=== PATIENT | female | born 1950 | race Caucasian/White ===

== ENCOUNTER 2016-08-30 18:45 | Inpatient (IN) ==
[2016-08-30] MEDS ORDERED: 0.9 % Sodium Chloride 1,000 ML IVC ONE (18:47)
[2016-08-30] MEDS ORDERED: Ondansetron 4 MG/2 ML VIAL IVP ONE (18:47)
--- NOTE | 2016-08-30 18:48 | Emergency Department Note ---
Disposition Clinical Impression: Abdominal pain, Malignancy, Anemia, Peritoneal carcinomatosis, Metastatic disease Disposition: Admitted As Inpatient Condition: Fair General Adult HPI - General Chief complaint: ED Abdominal Pain Stated complaint: Abd Pain N/V Time Seen by Provider: 08/30/16 18:46 - Related Data Previous Rx's Medication Instructions Recorded Guaifenesin/Pseudoephedrne HCl 1 each PO BID #20 tab.er.12h 10/18/15 [Mucinex D ER 1,200-120 mg Tab] Promethazine [Phenergan] 25 mg PO Q6HR PRN #16 tablet 10/18/15 Allergies Allergy/AdvReac Type Severity Reaction Status Date / Time No Known Allergies Allergy Verified 10/14/15 12:09 Past Medical History - Past Medical History Medical history: Reports: no medical history Psychiatric history: Reports: depression 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 RELATIONS AGENT history: Reports: no GUEST RELATIONS AGENT history - Social History Smoking Status: Unknown if ever smoked Smokeless Tobacco Status: No Alcohol use: Reports: unknown Drug use: Reports: none Course Vital Signs Temperature 98.2 F 08/30/16 18:46 Pulse Rate 96 08/30/16 18:46 Respiratory Rate 20 08/30/16 18:46 Blood Pressure 115/63 08/30/16 18:46 O2 Sat by Pulse Oximetry 95 08/30/16 18:46 Temperature 98.2 F 08/30/16 18:46 Pulse Rate 96 08/30/16 18:46 Respiratory Rate 20 08/30/16 18:46 Blood Pressure 115/63 08/30/16 18:46 O2 Sat by Pulse Oximetry 95 08/30/16 18:59 Oxygen Delivery Oxygen Delivery Room Air Medical Decision Making - Lab Data Result diagrams: 08/30/16 19:53 08/30/16 19:53 Lab Results 08/30/16 08/30/16 08/30/16 Range/Units 19:53 19:53 19:53 WBC 15.3 H (4.3-11.1) K/mcL RBC 2.11 L (3.82-4.97) M/mcL Hgb 7.7 L (11.5-15.4) g/dL Hct 22.1 L (35.3-44.9) % MCV 104.7 H (83.0-100.0) fL MCH 36.5 H (28.0-33.3) pg MCHC 34.8 (31.6-35.5) g/dL RDW 20.8 H (11.5-14.5) % Plt Count 305 (140-400) K/mcL MPV 9.6 (9.4-12.4) fL Immature Gran % 1.5 (0-4) % Seg Neutrophils % 77.0 % Lymphocytes % 11.9 % Monocytes % 7.7 % Eosinophils % 1.4 % Basophils % 0.5 % Neutrophils # 11.8 H (1.6-8.9) K/mcL Lymphocytes # 1.8 (0.6-4.6) K/mcL Monocytes # 1.2 (0.0-1.3) K/mcL Eosinophils # 0.2 (0.0-0.6) K/mcL Basophils # 0.1 (0.0-0.2) K/mcL Nucleated RBCs/100 WBC 0.1 H (0) /100 WBC Immature Plt Fraction 3.6 (1.1-6.1) % PT 16.0 H (9.4-12.1) Seconds INR 1.5 Sodium 132 L (136-145) mEq/L Potassium 3.8 (3.5-4.5) mEq/L Chloride 102 (98-109) mEq/L Carbon Dioxide 22 (19-29) mEq/L BUN 27 H (7-20) mg/dL Creatinine 0.82 (0.57-1.11) mg/dL Est GFR ( Amer) > 60 (> 60) Est GFR (Non-Af Amer) > 60 (> 60) BUN/Creatinine Ratio 33 H (6-26) Glucose 173 H (70-99) mg/dL Calculated Osmolality 283 (280-300) Lactic Acid (0.5-2.2) mmol/L Calcium 9.1 (8.6-10.8) mg/dL Total Bilirubin 6.7 H (0.2-1.2) mg/dL Direct Bilirubin 4.9 H (0.0-0.5) mg/dL Indirect Bilirubin 1.8 H (0.0-1.2) mg/dL AST 193 H (5-34) Units/L ALT 46 (0-55) Units/L Alkaline Phosphatase 657 H (38-126) Units/L Troponin I (0-0.03) ng/mL Serum Total Protein 5.9 L (6.0-8.3) g/dL Albumin 2.0 L (3.5-5.0) g/dL Globulin 3.9 H (2.4-3.5) g/dL Albumin/Globulin Ratio 0.5 L (1.1-2.2) Lipase 34 (8-78) Units/L 08/30/16 08/30/16 Range/Units 19:53 19:53 WBC (4.3-11.1) K/mcL RBC (3.82-4.97) M/mcL Hgb (11.5-15.4) g/dL Hct (35.3-44.9) % MCV (83.0-100.0) fL MCH (28.0-33.3) pg MCHC (31.6-35.5) g/dL RDW (11.5-14.5) % Plt Count (140-400) K/mcL MPV (9.4-12.4) fL Immature Gran % (0-4) % Seg Neutrophils % % Lymphocytes % % Monocytes % % Eosinophils % % Basophils % % Neutrophils # (1.6-8.9) K/mcL Lymphocytes # (0.6-4.6) K/mcL Monocytes # (0.0-1.3) K/mcL Eosinophils # (0.0-0.6) K/mcL Basophils # (0.0-0.2) K/mcL Nucleated RBCs/100 WBC (0) /100 WBC Immature Plt Fraction (1.1-6.1) % PT (9.4-12.1) Seconds INR Sodium (136-145) mEq/L Potassium (3.5-4.5) mEq/L Chloride (98-109) mEq/L Carbon Dioxide (19-29) mEq/L BUN (7-20) mg/dL Creatinine (0.57-1.11) mg/dL Est GFR ( Amer) (> 60) Est GFR (Non-Af Amer) (> 60) BUN/Creatinine Ratio (6-26) Glucose (70-99) mg/dL Calculated Osmolality (280-300) Lactic Acid 2.3 H (0.5-2.2) mmol/L Calcium (8.6-10.8) mg/dL Total Bilirubin (0.2-1.2) mg/dL Direct Bilirubin (0.0-0.5) mg/dL Indirect Bilirubin (0.0-1.2) mg/dL AST (5-34) Units/L ALT (0-55) Units/L Alkaline Phosphatase (38-126) Units/L Troponin I 0.00 (0-0.03) ng/mL Serum Total Protein (6.0-8.3) g/dL Albumin (3.5-5.0) g/dL Globulin (2.4-3.5) g/dL Albumin/Globulin Ratio (1.1-2.2) Lipase (8-78) Units/L Attestation Statement - Attestation Attestation: I examined this patient and my medical decision-making was reviewed with the ACCOUNTANT COST/PA/Advanced Practice Nurse/Resident Physician. I agree with the documented findings, disposition and treatment plan as described except to the extent set forth below. [id number] time provided Patient presents from home via EMS. She complains of chronic declining health, weight loss, diffuse pain, increased abdominal girth. She appears older than stated age on exam. She appears thin and frail but does have a distended abdomen. Concern for occult malignancy. Plan of care and management discussed by me with the resident physician Dr. Champion
[2016-08-30] MEDS ORDERED: *HR* HYDROmorphone (PF) 1 MG/ML SYRINGE IVP ONE (18:49)
--- NOTE | 2016-08-30 18:51 | Emergency Department Note ---
Disposition Clinical Impression: Malignancy, Peritoneal carcinomatosis, Metastatic disease Abdominal pain Qualifiers: Abdominal location: generalized Qualified Code(s): R10.84 - Generalized abdominal pain Anemia Qualifiers: Anemia type: unspecified type Qualified Code(s): D64.9 - Anemia, unspecified Disposition: Admitted As Inpatient Condition: Fair Referrals: NO,PCP [Primary Care Provider] - Forms: ED Satisfaction Letter, Work/School Release Abdominal Pain HPI - General Chief Complaint: ED Abdominal Pain Stated Complaint: Abd Pain N/V Time Seen by Provider: 08/30/16 18:46 Source: patient, EMS Mode of arrival: EMS Limitations: no limitations Nursing Notes Reviewed: Yes Vital Signs Reviewed: Yes - History of Present Illness HPI Narrative: 66 YO female presents for evaluation of "pain". Patient states that she has not been feeling well for over a month. States that she does not go to doctors and has not been to a doctor in the past 10 years. Patient does not provide much of a past medical history. Patient reports that she does smoke marijuana but does not seem to get rid of the pain. When asked specifically about her pain she says she has pain everywhere. Notes weight loss as well as bilateral lower leg swelling. Denies any fever. Denies a nausea or vomiting. Patient does note a distended abdomen. Denies history of hepatitis or alcohol abuse. No constipation or diarrhea but does note small stools. Denies history of recent colonoscopies. Reports weight loss with past month. - Related Data Previous Rx's Medication Instructions Recorded Guaifenesin/Pseudoephedrne HCl 1 each PO BID #20 tab.er.12h 10/18/15 [Mucinex D ER 1,200-120 mg Tab] Promethazine [Phenergan] 25 mg PO Q6HR PRN #16 tablet 10/18/15 Allergies Allergy/AdvReac Type Severity Reaction Status Date / Time No Known Allergies Allergy Verified 10/14/15 12:09 All systems ED: reviewed and negative except as stated. Constitutional: Reports: as per HPI. 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 Absent: miosis - ENT ENT exam: normal exam, mucous membranes moist - Neck Neck exam: Present: normal inspection, trachea midline - Chest Chest inspection: Present: normal inspection, symmetric chest wall rise. Absent : tenderness - Respiratory Respiratory exam: Present: normal lung sounds bilaterally. Absent: respiratory distress - Cardiovascular Cardiovascular exam: Present: regular rate, normal rhythm - Abdominal Exam Abdominal exam: Present: soft, Non-Tender, distention. Absent: guarding, rebound - Extremities Exam Extremities exam: Present: normal inspection, pedal edema (1+ bilateral edema) - Expanded Lower Extremity Exam Hip/Pelvis exam: Present: normal inspection Upper leg exam: Present: normal inspection Knee exam: Present: normal inspection Lower leg exam: Present: normal inspection - Back Exam Back exam: Present: normal inspection. Absent: CVA tenderness (R), CVA tenderness (L) - Neurological Exam Neurological exam: Present: alert, oriented X3 - Skin Skin exam: Present: warm, dry, intact, normal color Course Course Narrative: Agency and examined. Patient is irritated upon questioning. Attempted to comfort the patient, however the patient appears irritated. Patient appears chronically ill. Patient abdomen appears distended. Nontender. Concerns for malignancy and liver disease. Patient will get screening evaluation with EKG, chest x-ray, labs and CT abdomen pelvis. Disposition pending. - Reevaluation(s) Reevaluation #1: Patient seen and examined. Awaiting labs. Initial impression the patient's CAT scan shows concerns for malignancy and metastatic disease and awaiting radiologist interpretation. Time: 19:52 Reevaluation #2: Patient seen and examined. Updated family on plan of care and concerns for metastatic disease. Patient was offered admission vs outpatient management and monitoring. Patient and family agreed to inpatient admission. Patient's pain under control. Time: 20:29 Vital Signs Temperature 98.2 F 08/30/16 18:46 Pulse Rate 96 08/30/16 18:46 Respiratory Rate 20 08/30/16 18:46 Blood Pressure 115/63 08/30/16 18:46 O2 Sat by Pulse Oximetry 95 08/30/16 18:46 Temperature 98.2 F 08/30/16 18:46 Pulse Rate 96 08/30/16 18:46 Respiratory Rate 20 08/30/16 18:46 Blood Pressure 115/63 08/30/16 18:46 O2 Sat by Pulse Oximetry 95 08/30/16 18:59 Oxygen Delivery Oxygen Delivery Room Air Abdominal Pain - MDM Narrative Medical decision making narrative: 66 old female presents for evaluation of pain, lower leg swelling, weight loss. Patient states she has had diffuse pain. Unable to exactly localize. Note that she has had extreme weight loss that the family relates is been in the past month. Patient also notes bilateral lower ext swelling. Patient notes a distended abdomen. On exam there is concerns about liver disease with abdominal distention. Patient's lab work shows that she is anemic with hemoglobin 7.7. No evidence of gross bleeding. Likely chronic disease. Patient does have leukocytosis likely related to subsequent malignancy. Patient has not reported a productive cough concerning signs of pneumonia. Patient has not had any urinary symptoms. Patient's INR is elevated. Likely related to liver disease. Patient's CAT scan of the abdomen and pelvis shows diffuse metastatic disease with pulmonary nodules in the lung bases, liver lesions, ascites and peritoneal carcinomatosis, metastatic bone lesion. This information was discussed with the family and the patient. Patient was offered admission and states that she would like to be admitted for pain control and further evaluation. Explained to the patient as well as family that this is an advanced malignancy due to its metastatic stage. Spoke with hospitalist for admission. Antibiotics were not started in the emergency department as this does not appear to be in infectious process this point. Patient labs can be explained from her metastatic disease. Patient does have a mildly elevated lactate likely due to hypoperfusion from her metastatic disease. Patient given IV fluid hydration. Patient is also anemic and type and screen ordered. - Lab Data Lab results reviewed: Yes I reviewed the patient's lab results. Result diagrams: 08/30/16 19:53 08/30/16 19:53 Lab Results 08/30/16 08/30/16 08/30/16 Range/Units 19:53 19:53 19:53 WBC 15.3 H (4.3-11.1) K/mcL RBC 2.11 L (3.82-4.97) M/mcL Hgb 7.7 L (11.5-15.4) g/dL Hct 22.1 L (35.3-44.9) % MCV 104.7 H (83.0-100.0) fL MCH 36.5 H (28.0-33.3) pg MCHC 34.8 (31.6-35.5) g/dL RDW 20.8 H (11.5-14.5) % Plt Count 305 (140-400) K/mcL MPV 9.6 (9.4-12.4) fL Immature Gran % 1.5 (0-4) % Seg Neutrophils % 77.0 % Lymphocytes % 11.9 % Monocytes % 7.7 % Eosinophils % 1.4 % Basophils % 0.5 % Neutrophils # 11.8 H (1.6-8.9) K/mcL Lymphocytes # 1.8 (0.6-4.6) K/mcL Monocytes # 1.2 (0.0-1.3) K/mcL Eosinophils # 0.2 (0.0-0.6) K/mcL Basophils # 0.1 (0.0-0.2) K/mcL Nucleated RBCs/100 WBC 0.1 H (0) /100 WBC Immature Plt Fraction 3.6 (1.1-6.1) % PT 16.0 H (9.4-12.1) Seconds INR 1.5 Sodium 132 L (136-145) mEq/L Potassium 3.8 (3.5-4.5) mEq/L Chloride 102 (98-109) mEq/L Carbon Dioxide 22 (19-29) mEq/L BUN 27 H (7-20) mg/dL Creatinine 0.82 (0.57-1.11) mg/dL Est GFR ( Amer) > 60 (> 60) Est GFR (Non-Af Amer) > 60 (> 60) BUN/Creatinine Ratio 33 H (6-26) Glucose 173 H (70-99) mg/dL Calculated Osmolality 283 (280-300) Lactic Acid (0.5-2.2) mmol/L Calcium 9.1 (8.6-10.8) mg/dL Total Bilirubin 6.7 H (0.2-1.2) mg/dL Direct Bilirubin 4.9 H (0.0-0.5) mg/dL Indirect Bilirubin 1.8 H (0.0-1.2) mg/dL AST 193 H (5-34) Units/L ALT 46 (0-55) Units/L Alkaline Phosphatase 657 H (38-126) Units/L Troponin I (0-0.03) ng/mL Serum Total Protein 5.9 L (6.0-8.3) g/dL Albumin 2.0 L (3.5-5.0) g/dL Globulin 3.9 H (2.4-3.5) g/dL Albumin/Globulin Ratio 0.5 L (1.1-2.2) Lipase 34 (8-78) Units/L 08/30/16 08/30/16 Range/Units 19:53 19:53 WBC (4.3-11.1) K/mcL RBC (3.82-4.97) M/mcL Hgb (11.5-15.4) g/dL Hct (35.3-44.9) % MCV (83.0-100.0) fL MCH (28.0-33.3) pg MCHC (31.6-35.5) g/dL RDW (11.5-14.5) % Plt Count (140-400) K/mcL MPV (9.4-12.4) fL Immature Gran % (0-4) % Seg Neutrophils % % Lymphocytes % % Monocytes % % Eosinophils % % Basophils % % Neutrophils # (1.6-8.9) K/mcL Lymphocytes # (0.6-4.6) K/mcL Monocytes # (0.0-1.3) K/mcL Eosinophils # (0.0-0.6) K/mcL Basophils # (0.0-0.2) K/mcL Nucleated RBCs/100 WBC (0) /100 WBC Immature Plt Fraction (1.1-6.1) % PT (9.4-12.1) Seconds INR Sodium (136-145) mEq/L Potassium (3.5-4.5) mEq/L Chloride (98-109) mEq/L Carbon Dioxide (19-29) mEq/L BUN (7-20) mg/dL Creatinine (0.57-1.11) mg/dL Est GFR ( Amer) (> 60) Est GFR (Non-Af Amer) (> 60) BUN/Creatinine Ratio (6-26) Glucose (70-99) mg/dL Calculated Osmolality (280-300) Lactic Acid 2.3 H (0.5-2.2) mmol/L Calcium (8.6-10.8) mg/dL Total Bilirubin (0.2-1.2) mg/dL Direct Bilirubin (0.0-0.5) mg/dL Indirect Bilirubin (0.0-1.2) mg/dL AST (5-34) Units/L ALT (0-55) Units/L Alkaline Phosphatase (38-126) Units/L Troponin I 0.00 (0-0.03) ng/mL Serum Total Protein (6.0-8.3) g/dL Albumin (3.5-5.0) g/dL Globulin (2.4-3.5) g/dL Albumin/Globulin Ratio (1.1-2.2) Lipase (8-78) Units/L - Radiology Data Radiology results reviewed: Yes I reviewed the patient's radiology results. Abdomen/Pelvis CT 08/30/16 18:48 IMPRESSION: Innumerable pulmonary nodules in the lung bases, concerning for metastatic disease. Innumerable ill-defined hypodense lesions within the liver, concerning for metastatic disease. Ascites, infiltration of the omentum, and nodularity of the peritoneal reflections, concerning for peritoneal carcinomatosis. Indeterminate lesion within the T12 vertebral body, possibly representing a metastatic lesion. Diverticulosis without obvious evidence of diverticulitis. D/ / Bob Garcia MD / Bob Garcia MD Interpreting Provider: Bob Garcia MD Chest X-Ray 08/30/16 18:50 IMPRESSION: Bilateral interstitial infiltrates questioning some interstitial edema. Pneumonia cannot be excluded. D/ / 08/30/2016 19:34:00 Elias Sanchez MD / dain Interpreting Provider: Elias Sanchez MD - EKG Data EKG attestation: Yes I reviewed and interpreted this EKG. EKG shows normal: sinus rhythm Rate: normal Rhythm: NSR [place]/QRS: normal Interpretation: no acute changes, nonspecific ST-T wave changes S.B.AMarilyn - Donte.AsmitaAMarilyn Situation: Demographics Background: Presenting Complaint Assessment: Vital Signs, Course and respsone to treatment, Patient/Family Expectation, Pertinant Lab Results Recommendation: Barrier(s) to disposition, Recommendation based on pending studies, treatments, or consults S.B.A.RKeyla Report Given to: Dr. Susanna Gaffney Repor Time: 21:02
[2016-08-30 20:01] LABS: Basophils # 0.1 K/mcL (0.0-0.2); Basophils % 0.5 %; Eosinophils # 0.2 K/mcL (0.0-0.6); Eosinophils % 1.4 %; Hematocrit 22.1 % (35.3-44.9); Hemoglobin 7.7 g/dL (11.5-15.4); Immature Granulocytes % 1.5 % (0-4); Immature Platelets 3.6 % (1.1-6.1); Lymphocytes # 1.8 K/mcL (0.6-4.6); Lymphocytes % 11.9 %; Mean Corpuscular HGB Conc 34.8 g/dL (31.6-35.5); Mean Corpuscular Hemoglobin 36.5 pg (28.0-33.3); Mean Corpuscular Volume 104.7 fL (83.0-100.0); Mean Platelet Volume 9.6 fL (9.4-12.4); Monocytes # 1.2 K/mcL (0.0-1.3); Monocytes % 7.7 %; Neutrophils # 11.8 K/mcL (1.6-8.9); Nucleated Red Blood Cells 0.1 /100 WBC (0); Platelet Count 305 K/mcL (140-400); Red Blood Count 2.11 M/mcL (3.82-4.97); Red Cell Distribution Width 20.8 % (11.5-14.5)
[2016-08-30 20:05] LABS: INR 1.5
[2016-08-30 20:15] LABS: Alanine Aminotransferase 46 Units/L (0-55); Albumin/Globulin Ratio 0.5 (1.1-2.2); Alkaline Phosphatase 657 Units/L (38-126); Aspartate Amino Transferase 193 Units/L (5-34); BUN/Creatinine Ratio 33 (6-26); Bilirubin,Direct 4.9 mg/dL (0.0-0.5); Bilirubin,Indirect 1.8 mg/dL (0.0-1.2); Bilirubin,Total 6.7 mg/dL (0.2-1.2); Blood Urea Nitrogen 27 mg/dL (7-20); Calcium 9.1 mg/dL (8.6-10.8); Carbon Dioxide 22 mEq/L (19-29); Chloride 102 mEq/L (98-109); Globulin 3.9 g/dL (2.4-3.5); Glucose 173 mg/dL (70-99); Lipase 34 Units/L (8-78); Osmolality,Calculated 283 (280-300); Potassium 3.8 mEq/L (3.5-4.5); Sodium 132 mEq/L (136-145); Total Protein 5.9 g/dL (6.0-8.3); eGFR For African Americans > 60 (> 60); eGFR For Non-African Americans > 60 (> 60)
[2016-08-30] MEDS ORDERED: MOM Conc 10 ML UD.LIQ PO PRN (21:33)
[2016-08-30] MEDS ORDERED: Acetaminophen 325 MG TABLET PO PRN (21:33)
[2016-08-30] MEDS ORDERED: Naloxone 0.4 MG/ML INJ IVP PRN (21:33)
[2016-08-30] MEDS ORDERED: Ondansetron 4 MG/2 ML VIAL IVP PRN (21:33)
[2016-08-30] MEDS ORDERED: Ondansetron ODT 4 MG TAB.RAPDIS SL PRN (21:33)
[2016-08-30] MEDS ORDERED: *HR* OxyCODONE Immed Rel 5 MG TABLET PO PRN (21:33)
--- NOTE | 2016-08-30 21:44 | Internal Med History&Physical ---
Date of Encounter: 08/30/16 Time of Encounter: 20:40 Internal Medicine - H&P: HPI Chief complaint: Weight loss, feeling ill x 1 month. Admitted From: Emergency Dept Plans for Post Hospital Care: Hospice - Home History of present illness: Ms. Ashby is a 66 year old female presenting with abdominal pain. She is not ready to provide history, but she later reports that she thought her weight loss program was going well, "but now, they say I have cancer: "when do I get to my room" "why shoulder answer the same question i ANSWERED LESS THN 1 HOUR AGO". I have had to obtain some items on history from ED notes. She apparently told ED PERSONNEL SHE HAD ABDOMINAL PAIN, SWELLING and has not been feeling well for 1 month. She appears to agree to weight loss. She has not seen a provider in 10 years. She has not had colonoscopy, or completed other health maintenance steps. It appears she smokes cigarette, she mentioned to ED staff that she uses marijuana. She reports generalized pain and bilateral leg swelling , malaise and dyspnea on exertion. No hematemesis, melena, hematochezia or hematuria. No yellowing of elder. No diarrhea or constipation. No fever. No cough , no sorethroat. I am unable to confirm her code status, but will assume FULL CODE until goals or care discussion are completed. I am unable to confirm her NOK/POA, her daughter, Seble Ashby, is listed on her facesheet as her NOK ). 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 She tells she had just been asked the same questions. She directs to go ask my colleague or find answers in the computer Vital Signs Temperature 98.2 F 08/30/16 18:46 Pulse Rate 96 08/30/16 18:46 Respiratory Rate 20 08/30/16 18:46 Blood Pressure 115/63 08/30/16 18:46 O2 Sat by Pulse Oximetry 95 08/30/16 18:46 Temperature 98.2 F 08/30/16 18:46 Pulse Rate 96 08/30/16 18:46 Respiratory Rate 20 08/30/16 18:46 Blood Pressure 115/63 08/30/16 18:46 O2 Sat by Pulse Oximetry 95 08/30/16 18:59 Pale+, anicteric, afebrile, acyanotic, not in distress, cachetic Moist mucosa, I am unable to examine neck, axilla or groin for lymph node as the patient is not very receptive. Chest: CTAB Heart: RRR, HS1/2, systolic murmur ii/vi Abdomen: moderate distension, she forbids me to palpate her abdomen, because she does not wants more pain. surgery. CERAMIC SPRAYER: AAO X 3, no gross focal neurological deficits. Skin: No active skin lesion Extremities: 3+ pitting pedal edema bilaterally, normal pedal pulses, she again forbids me to palpate her legs because it causes pain. Lab Results 08/30/16 08/30/16 08/30/16 Range/Units 19:53 19:53 19:53 WBC 15.3 H (4.3-11.1) K/mcL RBC 2.11 L (3.82-4.97) M/mcL Hgb 7.7 L (11.5-15.4) g/dL Hct 22.1 L (35.3-44.9) % MCV 104.7 H (83.0-100.0) fL MCH 36.5 H (28.0-33.3) pg MCHC 34.8 (31.6-35.5) g/dL RDW 20.8 H (11.5-14.5) % Plt Count 305 (140-400) K/mcL MPV 9.6 (9.4-12.4) fL Immature Gran % 1.5 (0-4) % Seg Neutrophils % 77.0 % Lymphocytes % 11.9 % Monocytes % 7.7 % Eosinophils % 1.4 % Basophils % 0.5 % Neutrophils # 11.8 H (1.6-8.9) K/mcL Lymphocytes # 1.8 (0.6-4.6) K/mcL Monocytes # 1.2 (0.0-1.3) K/mcL Eosinophils # 0.2 (0.0-0.6) K/mcL Basophils # 0.1 (0.0-0.2) K/mcL Nucleated RBCs/100 WBC 0.1 H (0) /100 WBC Immature Plt Fraction 3.6 (1.1-6.1) % PT 16.0 H (9.4-12.1) Seconds INR 1.5 Sodium 132 L (136-145) mEq/L Potassium 3.8 (3.5-4.5) mEq/L Chloride 102 (98-109) mEq/L Carbon Dioxide 22 (19-29) mEq/L BUN 27 H (7-20) mg/dL Creatinine 0.82 (0.57-1.11) mg/dL Est GFR ( Amer) > 60 (> 60) Est GFR (Non-Af Amer) > 60 (> 60) BUN/Creatinine Ratio 33 H (6-26) Glucose 173 H (70-99) mg/dL Calculated Osmolality 283 (280-300) Lactic Acid (0.5-2.2) mmol/L Calcium 9.1 (8.6-10.8) mg/dL Total Bilirubin 6.7 H (0.2-1.2) mg/dL Direct Bilirubin 4.9 H (0.0-0.5) mg/dL Indirect Bilirubin 1.8 H (0.0-1.2) mg/dL AST 193 H (5-34) Units/L ALT 46 (0-55) Units/L Alkaline Phosphatase 657 H (38-126) Units/L Troponin I (0-0.03) ng/mL Serum Total Protein 5.9 L (6.0-8.3) g/dL Albumin 2.0 L (3.5-5.0) g/dL Globulin 3.9 H (2.4-3.5) g/dL Albumin/Globulin Ratio 0.5 L (1.1-2.2) Lipase 34 (8-78) Units/L 08/30/16 08/30/16 Range/Units 19:53 19:53 WBC (4.3-11.1) K/mcL RBC (3.82-4.97) M/mcL Hgb (11.5-15.4) g/dL Hct (35.3-44.9) % MCV (83.0-100.0) fL MCH (28.0-33.3) pg MCHC (31.6-35.5) g/dL RDW (11.5-14.5) % Plt Count (140-400) K/mcL MPV (9.4-12.4) fL Immature Gran % (0-4) % Seg Neutrophils % % Lymphocytes % % Monocytes % % Eosinophils % % Basophils % % Neutrophils # (1.6-8.9) K/mcL Lymphocytes # (0.6-4.6) K/mcL Monocytes # (0.0-1.3) K/mcL Eosinophils # (0.0-0.6) K/mcL Basophils # (0.0-0.2) K/mcL Nucleated RBCs/100 WBC (0) /100 WBC Immature Plt Fraction (1.1-6.1) % PT (9.4-12.1) Seconds INR Sodium (136-145) mEq/L Potassium (3.5-4.5) mEq/L Chloride (98-109) mEq/L Carbon Dioxide (19-29) mEq/L BUN (7-20) mg/dL Creatinine (0.57-1.11) mg/dL Est GFR ( Amer) (> 60) Est GFR (Non-Af Amer) (> 60) BUN/Creatinine Ratio (6-26) Glucose (70-99) mg/dL Calculated Osmolality (280-300) Lactic Acid 2.3 H (0.5-2.2) mmol/L Calcium (8.6-10.8) mg/dL Total Bilirubin (0.2-1.2) mg/dL Direct Bilirubin (0.0-0.5) mg/dL Indirect Bilirubin (0.0-1.2) mg/dL AST (5-34) Units/L ALT (0-55) Units/L Alkaline Phosphatase (38-126) Units/L Troponin I 0.00 (0-0.03) ng/mL Serum Total Protein (6.0-8.3) g/dL Albumin (3.5-5.0) g/dL Globulin (2.4-3.5) g/dL Albumin/Globulin Ratio (1.1-2.2) Lipase (8-78) Units/L Abdomen/Pelvis CT 08/30/16 18:48 Innumerable pulmonary nodules in the lung bases, concerning for metastatic disease. Innumerable ill-defined hypodense lesions within the liver, concerning for metastatic disease. Ascites, infiltration of the omentum, and nodularity of the peritoneal reflections, concerning for peritoneal carcinomatosis. Indeterminate lesion within the T12 vertebral body, possibly representing a metastatic lesion. Diverticulosis without obvious evidence of diverticulitis. Chest X-Ray 08/30/16 18:50 Bilateral interstitial infiltrates questioning some interstitial edema. Pneumonia cannot be excluded. 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 Leucocytosis likely related to malignancy as no infective foci has been identified. Anemia of chronic medical disease, associated with macrocytosis Dehydration PLAN Admit IVF NS @ 125 Supportive care, Diagnostic paracentesis Tumor markers DVT/GI prophylaxis Consult oncology, social services designee Anemia work-up, Venous doppler of lower extremities Patient perhaps due to shock diagnosis is not receptive to discussion tonight, I am unable to confirm her code status, I do not think she wants to talk tonight. She knows she has metastatic cancer, but I have delayed discussing goals of care tonight. My colleague and or me will reopen at a later time. Past Med Surg Social Fam HX - Past Medical History Medical history: no medical history Psychiatric history: depression - Social History Smoking Status: Unknown if ever smoked Smokeless Tobacco Status: No Alcohol use: unknown Drug use: none Internal Medicine - H&P: Meds Guaifenesin/Pseudoephedrne HCl [Mucinex D ER 1,200-120 mg Tab] 1 each PO BID # 20 tab.er.12h 10/18/15 [Rx] Promethazine [Phenergan] 25 mg PO Q6HR PRN #16 tablet 10/18/15 [Rx] Allergies No Known Allergies Allergy (Verified 10/14/15 12:09) All Systems PM: A 10-system review of systems was performed and is negative for pertinent findings except as documented above in the HPI. - Constitutional Vitals: Temp Pulse Resp BP Pulse Ox 98.2 F 96 20 115/63 95 08/30/16 18:46 08/30/16 18:46 08/30/16 18:46 08/30/16 18:46 08/30/16 18:59 Internal Med - H&P Results - Labs CBC & Chem 7: 08/30/16 19:53 08/30/16 19:53
[2016-08-30] MEDS: 0.9 % Sodium Chloride 1,000 ML IVC SCH (22:39)
[2016-08-30] MEDS: *HR* HYDROmorphone (PF) 1 MG/ML SYRINGE IVP PRN (22:39)
[2016-08-30] MEDS: *HR* Promethazine 25 MG/ML VIAL IVP PRN (22:47)
[2016-08-30 23:11] LABS: % Iron Saturation 17 % (15-50); Iron 30 mcg/dL (50-170); Transferrin 129 mg/dL (180-382)
[2016-08-30 23:15] LABS: Thyroid Stimulating Hormone 3.999 mcIU/mL (0.350-4.840)
[2016-08-30 23:28] LABS: Folate 3.2 ng/mL (7.0-31.4)
[2016-08-30 23:29] LABS: Vitamin B12 > 2000 pg/mL (213-816)
[2016-08-30 23:30] LABS: Carcinoembryonic Antigen 3.8 ng/mL (0-5.0)
[2016-08-31 00:01] LABS: Ferritin 1906 ng/ml (5-204)
[2016-08-31 06:15] LABS: Bilirubin,Urine Moderate (Negative); Blood,Urine Trace (Negative); Clarity,Urine Cloudy (Clear); Color,Urine Orange (Yellow); Glucose,Urine (UA) Normal (Normal); Ketones,Urine Negative (Negative); Leukocyte Esterase,Urine Small (Negative); Nitrite,Urine Negative (Negative); PH,Urine 5.5 pH Units (5.0-8.0); Protein,Urine Trace mg/dL (Neg-Trace); Urobilinogen,Urine Normal (Normal)
[2016-08-31] MEDS: 0.9 % Sodium Chloride 1,000 ML IVC SCH ×2 (06:15→23:51)
[2016-08-31 06:16] LABS: Bacteria,Urine None Seen per hpf (None-Few); Squamous Epithelial Cell,Urine Many per lpf (None-Few)
[2016-08-31 06:26] LABS: Hyaline Casts,Urine None Seen per lpf (None-Few)
--- NOTE | 2016-08-31 07:40 | Oncology Inp Consult Note ---
Date of Encounter: 08/31/16 Time of Encounter: 07:16 - Data of Consult Patient: new to practice Consult date: 08/31/16 Requesting Physician: Raul Valencia MD Primary Care Provider: PCP NO - Consult Narrative Reason for consult: Metastatic cancer unknown primary site. History of present illness: Ms. Ashby is a 66 year old woman seen in consultation for further evaluation of suspected metastatic cancer of unknown primary site. She presented 08/30/16 with progressive, painful abdominal discomfort associated with weight loss over about a month's duration. Patient is somewhat a poor historian and I obtained additional details of her clinical background from reviewing her chart. Her symptoms of an associated with progressive weakness, general malaise, bilateral symmetric lower extremity swelling. Abdomen CT on admission showed innumerable pulmonary nodules in the lung bases concerning for metastatic disease. Innumerable ill-defined hypodense lesions within the liver concerning for metastatic disease. Ascites, infiltration of the omentum, nodularity of the peritoneal reflections concerning for peritoneal carcinomatosis. Indeterminate lesion of the T12 vertebral body possibly metastatic in etiology. Diverticular disease. Chest x-ray showed bilateral interstitial pulmonary infiltrates. Indeterminate. Lab work shows macrocytic anemia, leukocytosis. Anemia workup shows severe folate deficiency (3.2). Elevated ferritin level (1900) suggests component of anemia due to chronic inflammation such as malignancy. B12 level normal. No evidence of thyroid dysfunction. Metabolic panel compatible with hypovolemia. LFT abnormalities shows picture [id number] hepatocellular injury with cholestatic picture. Hypoproteinemia suggesting poor synthetic function. Tumor marker CA-125 markedly elevated-1289. Recent tumor marker panel negative. Patient seen and examined at bedside. Chart reviewed for details of ongoing care by Hospital team. She has persistent, nonspecific, generalized discomfort. She is lethargic and irritable. She doesn't have any regular medical follow-up and no previous diagnosis of cancer. No mother medical comorbidities no intubation. Previous surgeries include . Psychiatric history reports depression. Patient reports that she is at home but has very limited support system. She has some family members at home but she refuses to give specific information about the relationship. She does not feel like she has enough resources to go through evaluation/ treatment on an outpatient basis and will likely need support. Rest of past medical, surgical, family, social history detailed below and verified with patient today. Review of systems: 12 point review of systems performed with patient and positive findings noted in history of present illness. All other systems are negative: Physical exam: Vital Signs Temp 98 F 08/31/16 07:27 Pulse 90 08/31/16 07:27 Resp 15 08/31/16 07:27 BP 93/56 08/31/16 03:37 Pulse Ox 94 L 08/31/16 07:27 GENERAL: * Cachectic appearing, appears uncomfortable.. * Mental Status: Affect appropriate for circumstances HEENT: * Sclerae anicteric. No mucositis or thrush. * No other oral or pharyngeal lesions or erythema. Skin: * No rashes or petechiae. * No evidence of skin malignancy Lymph nodes: * No cervical, supraclavicular, axillary, or inguinal adenopathy. Lungs: * Clear to auscultation bilaterally. * Clear to percussion bilaterally. Cardiovascular: * Regular rate and rhythm. * No gallops, murmurs, or rubs. Abdomen: * Soft, nontender; diffuse ascites with palpable nodularities per abdomen. * No organomegaly or masses palpable. Extremities: * No edema. No calf swelling or tenderness. * No joint deformity. Neurologic: * Lethargic, global weakness. * no focal weakness or sensory abnormalities. Results: Laboratory Last Values WBC 15.3 K/mcL (4.3-11.1) H 08/30/16 19:53 RBC 2.11 M/mcL (3.82-4.97) L 08/30/16 19:53 Hgb 7.7 g/dL (11.5-15.4) L 08/30/16 19:53 Hct 22.1 % (35.3-44.9) L 08/30/16 19:53 MCV 104.7 fL (83.0-100.0) H 08/30/16 19:53 MCH 36.5 pg (28.0-33.3) H 08/30/16 19:53 MCHC 34.8 g/dL (31.6-35.5) 08/30/16 19:53 RDW 20.8 % (11.5-14.5) H 08/30/16 19:53 Plt Count 305 K/mcL (140-400) 08/30/16 19:53 MPV 9.6 fL (9.4-12.4) 08/30/16 19:53 Immature Gran % 1.5 % (0-4) 08/30/16 19:53 Seg Neutrophils % 77.0 % 08/30/16 19:53 Lymphocytes % 11.9 % 08/30/16 19:53 Monocytes % 7.7 % 08/30/16 19:53 Eosinophils % 1.4 % 08/30/16 19:53 Basophils % 0.5 % 08/30/16 19:53 Neutrophils # 11.8 K/mcL (1.6-8.9) H 08/30/16 19:53 Lymphocytes # 1.8 K/mcL (0.6-4.6) 08/30/16 19:53 Monocytes # 1.2 K/mcL (0.0-1.3) 08/30/16 19:53 Eosinophils # 0.2 K/mcL (0.0-0.6) 08/30/16 19:53 Basophils # 0.1 K/mcL (0.0-0.2) 08/30/16 19:53 Nucleated RBCs/100 WBC 0.1 /100 WBC (0) H 08/30/16 19:53 Immature Plt Fraction 3.6 % (1.1-6.1) 08/30/16 19:53 PT 16.0 Seconds (9.4-12.1) H 08/30/16 19:53 INR 1.5 08/30/16 19:53 Sodium 132 mEq/L (136-145) L 08/30/16 19:53 Potassium 3.8 mEq/L (3.5-4.5) 08/30/16 19:53 Chloride 102 mEq/L (98-109) 08/30/16 19:53 Carbon Dioxide 22 mEq/L (19-29) 08/30/16 19:53 BUN 27 mg/dL (7-20) H 08/30/16 19:53 Creatinine 0.82 mg/dL (0.57-1.11) 08/30/16 19:53 Est GFR ( Amer) > 60 (> 60) 08/30/16 19:53 Est GFR (Non-Af Amer) > 60 (> 60) 08/30/16 19:53 BUN/Creatinine Ratio 33 (6-26) H 08/30/16 19:53 Glucose 173 mg/dL (70-99) H 08/30/16 19:53 Calculated Osmolality 283 (280-300) 08/30/16 19:53 Lactic Acid 2.3 mmol/L (0.5-2.2) H 08/30/16 19:53 Calcium 9.1 mg/dL (8.6-10.8) 08/30/16 19:53 Iron 30 mcg/dL (50-170) L 08/30/16 19:53 % Saturation 17 % (15-50) 08/30/16 19:53 Transferrin 129 mg/dL (180-382) L 08/30/16 19:53 Ferritin 1906 ng/ml (5-204) H 08/30/16 19:53 Total Bilirubin 6.7 mg/dL (0.2-1.2) H 08/30/16 19:53 Direct Bilirubin 4.9 mg/dL (0.0-0.5) H 08/30/16 19:53 Indirect Bilirubin 1.8 mg/dL (0.0-1.2) H 08/30/16 19:53 AST 193 Units/L (5-34) H 08/30/16 19:53 ALT 46 Units/L (0-55) 08/30/16 19:53 Alkaline Phosphatase 657 Units/L (38-126) H 08/30/16 19:53 Troponin I 0.00 ng/mL (0-0.03) 08/30/16 19:53 Serum Total Protein 5.9 g/dL (6.0-8.3) L 08/30/16 19:53 Albumin 2.0 g/dL (3.5-5.0) L 08/30/16 19:53 Globulin 3.9 g/dL (2.4-3.5) H 08/30/16 19:53 Albumin/Globulin Ratio 0.5 (1.1-2.2) L 08/30/16 19:53 Lipase 34 Units/L (8-78) 08/30/16 19:53 Carcinoembryonic Ag 3.8 ng/mL (0-5.0) 08/30/16 19:53 CA 125 Ag Serial Mntr 1289 U/mL (0-35) H 08/30/16 19:53 Vitamin B12 > 2000 pg/mL (213-816) H 08/30/16 19:53 Folate 3.2 ng/mL (7.0-31.4) L 08/30/16 19:53 TSH 3.999 mcIU/mL (0.350-4.840) 08/30/16 19:53 Urine Color [place] (Yellow) A 08/31/16 06:02 Urine Clarity Cloudy (Clear) A 08/31/16 06:02 Urine pH 5.5 pH Units (5.0-8.0) 08/31/16 06:02 Ur Specific [place] 1.020 (1.010-1.025) 08/31/16 06:02 Urine Protein Trace mg/dL (Neg-Trace) 08/31/16 06:02 Urine Glucose (UA) Normal mg/dL (Normal) 08/31/16 06:02 Urine Ketones Negative mg/dL (Negative) 08/31/16 06:02 Urine Blood Trace (Negative) H 08/31/16 06:02 Urine Nitrite Negative (Negative) 08/31/16 06:02 Urine Bilirubin Moderate (Negative) H 08/31/16 06:02 Urine Urobilinogen Normal mg/dL (Normal) 08/31/16 06:02 Ur Leukocyte Esterase Small (Negative) H 08/31/16 06:02 Urine Microscopic RBC 3-5 per hpf (0-3) H 08/31/16 06:02 Urine Microscopic WBC 5-15 per hpf (0-3) H 08/31/16 06:02 Ur Squamous Epith Cells Many per lpf (None-Few) H 08/31/16 06:02 Urine Bacteria None Seen per hpf (None-Few) 08/31/16 06:02 Hyaline Casts None Seen per lpf (None-Few) 08/31/16 06:02 Ur Culture Indicated? YES (NO) A 08/31/16 06:02 Blood Type B POSITIVE 08/30/16 20:59 Antibody Screen NEGATIVE 08/30/16 20:59 Radiographic studies: I personally reviewed and interpreted patient's most recent imaging studies dated 08/30/16. I discussed the findings with the patient today. Abdomen/Pelvis CT 08/30/16 18:48 IMPRESSION: Innumerable pulmonary nodules in the lung bases, concerning for metastatic disease. Innumerable ill-defined hypodense lesions within the liver, concerning for metastatic disease. Ascites, infiltration of the omentum, and nodularity of the peritoneal reflections, concerning for peritoneal carcinomatosis. Indeterminate lesion within the T12 vertebral body, possibly representing a metastatic lesion. Diverticulosis without obvious evidence of diverticulitis. D/ / Bob Garcia MD / Bob Garcia MD Interpreting Provider: Bob Garcia MD Chest X-Ray 08/30/16 18:50 IMPRESSION: Bilateral interstitial infiltrates questioning some interstitial edema. Pneumonia cannot be excluded. D/ / 08/30/2016 19:34:00 Elias Sanchez MD / dain Interpreting Provider: Elias Sanchez MD Impression/recommendations: Suspected metastatic cancer unknown primary site: Patient with no previous medical follow-up presenting with progressive weight loss, abdominal discomfort, ascites, bilateral lower extremity swelling. Tumor markers CEA 125 elevated. Abdominal imaging shows diffuse, bibasal pulmonary nodules, large volume ascites , diffuse peritoneal nodularity, diffuse liver lesions. Overall clinical picture highly concerning for disseminated malignancy from an ovarian primary. We discussed diagnostic considerations for her presentation and the basis for concern about disseminated malignancy. We also discussed the importance of tissue diagnosis for definitive treatment and prognostic recommendations. Based on above, recommend therapeutic paracenteses and fluid studies to establish diagnosis of malignancy. Depending on results of her studies, she may also need additional biopsies of February the liver or lung lesions for diagnosis and staging purposes but that can be performed if needed after we get preliminary results from ascites fluid. If she is confirmed to have malignancy, she may be amenable to one of several options for anti-neoplastic therapy including hormonal therapy, low intensity chemotherapy, oral PARP inhibitor depending on pathology. Palliative care has been consulted which I think is very reasonable given the extent of patient's malignancy. I informed her that if she is less inclined towards antineoplastic therapy, palliative care/hospice would certainly be reasonable considerations. Anemia: Likely multifactorial. Anemia workup shows folate deficiency. Possible contribution from anemia of chronic disease due to malignancy. Recommend to start folate supplement 1 mg by mouth daily. Monitor for improvement and consider PRBC transfusion as needed to maintain hemoglobin of 7 or greater. Leukocytosis: Likely reactive on the basis of underlying malignancy. Failure to thrive: Progressive weight loss, hypoalbuminemia with poor synthetic liver dysfunction. Recommend nutrition consult for further recommendations. Poor social support system: She reportedly has limited support at home and has limited resources to navigate evaluation and management of her current illness on the outpatient basis if needed. We'll recommend social service agency director consult to assess home situation and block patient in with support systems/resources within the community to help her navigate the health system. I have given her my card with my information and my office will make an appointment to see her as an outpatient for further discussion regarding oncologic management as needed. We'll follow the patient along side you during this hospitalization but please do not hesitate to call regarding interval hematologic questions as they arise. Thank you for your excellent ongoing care for allowing us to see her while in- house. This report was created using voice recognition software and may contain errors. It was signed but not edited to expedite communication. Past Med Surg Social Fam HX - Past Medical History Medical history: no medical history Psychiatric history: depression - Social History Smoking Status: Unknown if ever smoked Smokeless Tobacco Status: No Alcohol use: unknown Drug use: none Medications and Allergies Guaifenesin/Pseudoephedrne HCl [Mucinex D ER 1,200-120 mg Tab] 1 each PO BID # 20 tab.er.12h 10/18/15 [Rx] Promethazine [Phenergan] 25 mg PO Q6HR PRN #16 tablet 10/18/15 [Rx] Allergies No Known Allergies Allergy (Verified 10/14/15 12:09) Oncology - Exam - Constitutional Vitals: Temp Pulse Resp BP Pulse Ox 98.0 F 87 12 93/56 93 L 08/31/16 03:37 08/31/16 03:37 08/31/16 03:37 08/31/16 03:37 08/31/16 03:37 Oncology - Results - Labs Labs: Urine 08/31/16 Range/Units 06:02 Urine Color [place] A (Yellow) Urine Clarity Cloudy A (Clear) Urine pH 5.5 (5.0-8.0) pH Units Ur Specific [place] 1.020 (1.010-1.025) Urine Protein Trace (Neg-Trace) mg/dL Urine Glucose (UA) Normal (Normal) mg/dL Consult Discharge Plan - Plan Referrals: NO,PCP [Primary Care Provider] -
[2016-08-31] MEDS: *HR* Enoxaparin 30 MG/0.3 ML SYRINGE SQ SCH ×2 (08:35→20:09)
--- NOTE | 2016-08-31 10:57 | Internal Med Progress Note ---
Date of Encounter: 08/31/16 Time of Encounter: 09:15 - Assessment and plan (1) Abdominal pain Current Visit: Yes Status: Acute Assessment and plan: On examination, patient is restless and irritable. She states she cannot get comfortable. Her answers are very baudilio and she gets annoyed when asked more than one question. I strongly suspect the patient has uncontrolled pain and I brought this up with the patient. She would be amenable to scheduled pain medication to assess her response. She certainly has several sources of possible pain. Imaging consistent with likely new diagnosis of ovarian cancer with several metastatic areas including lungs, liver, possible T12 lesion. Oncology and palliative care are on board. Paracentesis later today per IR. Nutrition also on board. We will initiate Ensure. Patient endorsing a very decreased appetite. She states that she had been drinking Ensure at home. Patient also denies shortness of breath, lung sounds decreased throughout, respirations unlabored. ITS Impressions Abdomen/Pelvis CT 08/30/16 18:48 IMPRESSION: Innumerable pulmonary nodules in the lung bases, concerning for metastatic disease. Innumerable ill-defined hypodense lesions within the liver, concerning for metastatic disease. Ascites, infiltration of the omentum, and nodularity of the peritoneal reflections, concerning for peritoneal carcinomatosis. Indeterminate lesion within the T12 vertebral body, possibly representing a metastatic lesion. Diverticulosis without obvious evidence of diverticulitis. D/ / Bob Garcia MD / Bob Garcia MD Interpreting Provider: Bob Garcia MD Chest X-Ray 08/30/16 18:50 IMPRESSION: Bilateral interstitial infiltrates questioning some interstitial edema. Pneumonia cannot be excluded. D/ / 08/30/2016 19:34:00 Elias Sanchez MD / dain Interpreting Provider: Elias Sanchez MD (2) Hyponatremia Current Visit: Yes Status: Acute Assessment and plan: Mild, continue IV fluids, will trend. Osmolality normal. (3) Abnormal urinalysis Current Visit: Yes Status: Acute Assessment and plan: Urinalysis consistent with possible urinary tract infection. Leukocytosis also noted, will initiate ceftriaxone. (4) Anemia Current Visit: Yes Status: Acute Assessment and plan: Likely secondary to metastatic cancer. Oncology is on board, per their recommendations we will transfuse if her Hb drops below 7. Folate supplementation added. We will continue to trend. (5) Malignancy Current Visit: Yes Status: Acute Assessment and plan: Oncology on board. I are brought on board for paracentesis for diagnostic purposes. Suspect possible primary ovarian etiology with metastasis to several locations including possible lungs, liver, spine. (6) Metastatic disease Current Visit: Yes Status: Acute (7) Peritoneal carcinomatosis Current Visit: Yes Status: Acute - Subjective Interval history: Patient seen and examined. On examination, patient sitting upright in bed eating her breakfast. She is alert and oriented 3. She denies pain at this time but states she cannot get comfortable. She states she does not like the food. - Constitutional Vitals: Temp Pulse Resp BP Pulse Ox 98 F 89 15 91/40 94 L 08/31/16 07:27 08/31/16 07:37 08/31/16 07:27 08/31/16 07:37 08/31/16 07:27 General appearance: Present: mild distress (2/2 agitation), A&O X 3, loss of weight, answers questions appropriately - Head Head exam: Present: atraumatic, normocephalic - Eye Eye exam: Present: PERRL, conjuntiva pink, sclera anicteric Pupils: Present: PERRL - Expanded ENT Exam Teeth exam: Present: edentulous - Neck Neck exam general surgery: Present: supple, trachea midline. Absent: lymphadenopathy - Respiratory Respiratory exam: Present: decreased breath sounds. Absent: accessory muscle use, rales, respiratory distress, rhonchi, wheezes - Cardiovascular Cardiovascular exam: Present: RRR, +S1, +S2. Absent: diastolic murmur, gallop, rubs, systolic murmur - GI/Abdominal GI/Abdominal exam: Present: normal bowel sounds, soft, no peritoneal signs. Absent: distended, tenderness - Extremities Exam Extremities exam: Present: warm, radial pulses palpable and symetrical. Absent : calf tenderness, cyanotic, pedal edema - Neurological Exam Neurological exam: Present: alert, CN II-XII intact, oriented X3, no focal deficits, strengths equal and symetr throughout. Absent: pronater drift, facial droop, speech deficit - Skin Skin exam: Present: dry, intact, pallor, warm Internal Medicine: Result - Labs CBC & Chem 7: 08/30/16 19:53 08/30/16 19:53 Labs: Urine 08/31/16 Range/Units 06:02 Urine Color [place] A (Yellow) Urine Clarity Cloudy A (Clear) Urine pH 5.5 (5.0-8.0) pH Units Ur Specific [place] 1.020 (1.010-1.025) Urine Protein Trace (Neg-Trace) mg/dL Urine Glucose (UA) Normal (Normal) mg/dL - ABG Interpretation ABG results: PT/INR, D-dimer PT 16.0 Seconds (9.4-12.1) H 08/30/16 19:53 Consult Discharge Plan - Plan Referrals: NO,PCP [Primary Care Provider] -
[2016-08-31] MEDS ORDERED: Ondansetron 4 MG/2 ML VIAL IVP PRN (11:04)
[2016-08-31] MEDS: *HR* OxyCODONE Immed Rel 5 MG TABLET PO SCH ×4 (12:01→23:53)
--- NOTE | 2016-08-31 13:26 | Palliative - Consult Note ---
Date of Encounter: 08/31/16 Time of Encounter: 12:30 - Assessment and Plan (1) Abdominal pain Current Visit: Yes Status: Acute Assessment and plan: Patient has been started on Around the clock Oxycodone this am, so I did not make any changes. I reinforced with her and her daughter, that she does have IV pain medication she can utilized for breakthrough pain if needed if Oxycodone does not hold her, and they verbalized understanding. I suspect she will need started on long acting opioid during this admission, once we get a better idea of her needs. Will continue to evaluate pain and adjust accordingly Qualifiers: Abdominal location: generalized Qualified Code(s): R10.84 - Generalized abdominal pain (2) Nausea Current Visit: Yes Status: Acute Assessment and plan: Continue Zofran and monitor. (3) Counseling regarding advanced care planning and goals of care Current Visit: Yes Status: Acute Assessment and plan: Patient currently lives primarily alone - there is a twin brother apparently, and a son as well. Daughter works and has 3 children. She was previously totally independent and functioned on her own with no DME. Daughter states that other family not reliable, and that she will be the only available help to her mom upon discharge. Daughter has not received much information re: her mother's status other than the ER physician said "looks like cancer". Reviewed briefly the CT results with daughter, who is overwhelmed and tearful. Will continue to follow and address goals of care. I told daughter that hopefully abd fluid from paracentesis will provide some answers and oncology would be following to provide options if she is a candidate. Stated that we would have several things to discuss this week. Will re-address code status and hopefully get healthcare POA in place the next day or two when pt more willing to participate. (4) Peritoneal carcinomatosis Current Visit: Yes Status: Acute (5) Metastatic disease Current Visit: Yes Status: Acute Assessment and plan: Awaiting paracentesis, fluid evaluation to establish diagnosis. (6) Anemia Current Visit: Yes Status: Acute Qualifiers: Anemia type: folate deficiency Folate deficiency anemia type: dietary Qualified Code(s): D52.0 - Dietary folate deficiency anemia Palliative-CN HPI - Data of Consult Consult date: 08/31/16 Requesting Physician: Leatha Cleveland Primary Care Provider: PCP NO - Consult Narrative History of present illness: Ms. Ashby is a 66 year old female with no pertinent medical history who was brought to hospital after daughter called squad for increasing abdominal pain. Patient is refusing to answer many questions at this time, however, daughter at bedside provided information during my visit. Daughter states that pt has c/o nausea for approximately a year, and had visited urgent care last year for this as well. Has been treating with over the counter medications. Daughter actually showed me a picture of the pt she states was a month ago, and pt appears much sicker than this picture. Daughter states she visited her mother Becky Copeland and was shocked at her weight loss. She states pt very stubborn, doesn't have a doctor, and was taking approximately 10 over the counter medications for pain and nausea. Patient at that time was most interested in an upcoming phone interview and didn't want to go to doctor. Daughter states she called pt often and other son living in the house or her mother did not verbalize any issues. She visited her mother, and saw her condition and immediately called EMS. Upon my visit, pt restless in bed and states she has pain when she moves in abdomen and back. States " I have 2 pulled muscles". She is very reluctant to answer many questions with her daughter in or out of the room. States "want to sleep". Appears jaundiced, distended abdomen. Lower legs edematous. Cachetic. Daughter tearful at bedside. CC: Leatha Cleveland Past Med Surg Social Fam HX - Past Medical History Medical history: no medical history Psychiatric history: depression - Social History Smoking Status: Unknown if ever smoked Smokeless Tobacco Status: No Alcohol use: unknown Drug use: none Medications and Allergies Guaifenesin/Pseudoephedrne HCl [Mucinex D ER 1,200-120 mg Tab] 1 each PO BID # 20 tab.er.12h 10/18/15 [Rx] Promethazine [Phenergan] 25 mg PO Q6HR PRN #16 tablet 10/18/15 [Rx] Allergies No Known Allergies Allergy (Verified 10/14/15 12:09) Review of systems: Patient reluctant to answer any questions other than pain at this time. Palliative Care-Exam - Constitutional Vitals: Temp Pulse Resp BP Pulse Ox 98.2 F 98 15 96/57 93 L 08/31/16 11:06 08/31/16 11:06 08/31/16 11:06 08/31/16 11:06 08/31/16 11:06 General appearance: Present: disheveled, mild distress, thin - Head Head Exam: Present: normal inspection, normocephalic - Eye Eye exam: Present: normal appearance, PERRL, scleral icterus - Respiratory Respiratory exam: Present: decreased breath sounds, CTAB - Cardiovascular Cardiovascular exam: Present: +S1, +S2 - GI/Abdominal Exam GI/Abdominal exam: Present: distended, normal bowel sounds, tenderness - Extremities Exam Additional comments: 2-3+ edema bilateral lower extremities - Neurological Exam Neurological exam: Present: alert Additional comments: Patient drowsy at this time. Not participating with exam. Unable to evaluate neuro status based on her noncompliance with exam at this time. - Skin Skin exam: Present: dry, warm Internal Medicine - CN: Reslt - Labs CBC & Chem 7: 08/30/16 19:53 08/30/16 19:53 Labs: Urine 08/31/16 Range/Units 06:02 Urine Color [place] A (Yellow) Urine Clarity Cloudy A (Clear) Urine pH 5.5 (5.0-8.0) pH Units Ur Specific [place] 1.020 (1.010-1.025) Urine Protein Trace (Neg-Trace) mg/dL Urine Glucose (UA) Normal (Normal) mg/dL - ABG Interpretation ABG results: PT/INR, D-dimer PT 16.0 Seconds (9.4-12.1) H 08/30/16 19:53 Consult Discharge Plan - Plan Referrals: NO,PCP [Primary Care Provider] - Palliative Quality Palliative Quality: Screen for Code Status: NA (will address later), Screen for Goals of Care: NA (will address later), Screen for Pain: Yes, If Pain Regimen Started, Initiate Bowel Regimen: Yes, Screen for Nausea/Vomitting: Yes
--- NOTE | 2016-08-31 14:21 | IR Procedure Note ---
Date of procedure: 08/31/16 Consent Obtained: Verbal consent, Written consent Timeout: Correct patient and procedure verified, Correct site verified, Time out performed, Skin prep completed Local anesthetic: Lidocaine 1% Indications: ascites Procedure Performed: paracentesis Site/Technique: RLQ Results/Findings: 60 mL sample sent to lab Estimated blood loss (cc): 1 Complications: None; Tolerated procedure well Post Procedure Treatment Plan: per primary service
--- NOTE | 2016-08-31 15:07 | Electrocardiograph Report ---
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
[2016-08-31] MEDS: Albumin 25% 25gram/100mL 25 GM/100 ML IV.SOLN IVPB SCH ×2 (15:36→17:40)
[2016-08-31 16:22] LABS: RBC,Peritoneal Fluid 0.035 M/mcL
[2016-08-31 16:29] LABS: Amylase,Peritoneal Fluid 15 Units/L (No Ref Range); Glucose,Peritoneal Fluid 147 mg/dL (No Ref Range); LDH,Peritoneal Fluid 108 Units/L (No Ref Range)
[2016-08-31 18:45] LABS: Appearance of Peritoneal Fl BLOODY (Clear)
[2016-09-01 05:05] LABS: Basophils # 0.1 K/mcL (0.0-0.2); Basophils % 0.7 %; Eosinophils # 0.4 K/mcL (0.0-0.6); Eosinophils % 3.7 %; Hematocrit 19.8 % (35.3-44.9); Hemoglobin 6.9 g/dL (11.5-15.4); Immature Granulocytes % 1.8 % (0-4); Lymphocytes # 2.1 K/mcL (0.6-4.6); Lymphocytes % 18.2 %; Mean Corpuscular HGB Conc 34.8 g/dL (31.6-35.5); Mean Corpuscular Hemoglobin 37.5 pg (28.0-33.3); Mean Corpuscular Volume 107.6 fL (83.0-100.0); Mean Platelet Volume 9.3 fL (9.4-12.4); Monocytes # 1.1 K/mcL (0.0-1.3); Monocytes % 9.3 %; Neutrophils # 7.6 K/mcL (1.6-8.9); Platelet Count 192 K/mcL (140-400); Red Blood Count 1.84 M/mcL (3.82-4.97); Segmented Neutrophils % 66.3 %
[2016-09-01 05:19] LABS: BUN/Creatinine Ratio 23 (6-26); Blood Urea Nitrogen 19 mg/dL (7-20); Calcium 8.2 mg/dL (8.6-10.8); Carbon Dioxide 21 mEq/L (19-29); Chloride 106 mEq/L (98-109); Glucose 119 mg/dL (70-99); Osmolality,Calculated 277 (280-300); Potassium 4.1 mEq/L (3.5-4.5); Sodium 132 mEq/L (136-145); eGFR For African Americans > 60 (> 60); eGFR For Non-African Americans > 60 (> 60)
[2016-09-01] MEDS: *HR* OxyCODONE Immed Rel 5 MG TABLET PO SCH (05:46)
[2016-09-01] MEDS: *HR* Enoxaparin 30 MG/0.3 ML SYRINGE SQ SCH ×2 (09:17→21:17)
[2016-09-01] MEDS: *HR* HYDROmorphone (PF) 1 MG/ML SYRINGE IVP PRN (09:22)
[2016-09-01] MEDS ORDERED: 0.9 % Sodium Chloride 250 ML ONE ×2 (09:38→12:38)
--- NOTE | 2016-09-01 09:41 | Venous Imaging Report ---
LE Venous Duplex Patient Name:Waleska Ashby Order Number:[id number] Procedure Date:08/31/2016 Date:2Age:66 yrs Gender:Female Location:[facility] Room #: 3A45 Navigation Officer:Krystina Ludwig Referring MD:Kar Pinto MD attendant honor bar:None Reading MD:Maynor Jim MD Primary Indications:Evaluate for DVT Secondary Indications: Impressions: Normal bilateral lower extremity deep and superficial venous exam. Recommendations: After imaging the patient returned to their room. Findings Venous Duplex Results: Right: Venous imaging of the lower extremity reveals full patency and normal vessel compressibility of the right distal iliac, right common femoral, right superficial femoral, right popliteal, right posterior tibial, right peroneal, right great saphenous and right lesser saphenous. Doppler signals in the evaluated veins were normal. Left: Venous imaging of the lower extremity reveals full patency and normal vessel compressibility of the left distal iliac, left common femoral, left superficial femoral, left popliteal, left posterior tibial, left peroneal, left great saphenous and left lesser saphenous. Doppler signals in the evaluated veins were normal. Prior Study: No prior study available for comparison. Lower Extremity Venous Duplex Side Vein Compress Spontaneous Flow Augment Diameter (cm) Depth (cm) Right Distal Iliac Normal Yes Phasic Yes Right Common Femoral Normal Yes Phasic Yes Right Superficial Femoral Normal Yes Phasic Yes Right Popliteal Normal Yes Phasic Yes Right Posterior Tibial Normal Yes Phasic Yes Right Peroneal Normal Yes Phasic Yes Right Great Saphenous Normal Yes Phasic Yes Right Lesser Saphenous Normal Yes Phasic Yes Left Distal Iliac Normal Yes Phasic Yes Left Common Femoral Normal Yes Phasic Yes Left Superficial Femoral Normal Yes Phasic Yes Left Popliteal Normal Yes Phasic Yes Left Posterior Tibial Normal Yes Phasic Yes Left Peroneal Normal Yes Phasic Yes Left Great Saphenous Normal Yes Phasic Yes Left Lesser Saphenous Normal Yes Phasic Yes Updated by Maynor Jim MD on 09/01/2016 9:36:34 AM electronically signed on 09/01/2016 9:36:49 AM with status of Final
--- NOTE | 2016-09-01 10:13 | Palliative Progress Note ---
Date of Encounter: 09/01/16 Time of Encounter: 10:00 - Assessment and plan (1) Abdominal pain Current Visit: Yes Status: Acute Assessment and plan: Improved today - has only utilized Hydromorphone x1. Continues with scheduled Oxycodone. Monitor and adjust if needed. Qualifiers: Abdominal location: generalized Qualified Code(s): R10.84 - Generalized abdominal pain (2) Nausea Current Visit: Yes Status: Acute Assessment and plan: Continue ondansetron PRN. Has not required. (3) Counseling regarding advanced care planning and goals of care Current Visit: Yes Status: Acute Assessment and plan: Palliative meeting with pt, daughter, and pt brother at 1245. Patient daughter did have phone conversation with Dr. Jose yesterday pm and still awaiting results on definitive diagnosis. (4) Peritoneal carcinomatosis Current Visit: Yes Status: Acute (5) Metastatic disease Current Visit: Yes Status: Acute (6) Anemia Current Visit: Yes Status: Acute Qualifiers: Anemia type: folate deficiency Folate deficiency anemia type: dietary Qualified Code(s): D52.0 - Dietary folate deficiency anemia - Time Spent With Patient Total time spent is greater than 50% in coordination of care (as documented) at patient's floor/unit and/or counseling patient: - Subjective Interval history: Patient awake and alert. A little more interactive today. States pain in better and less pressure in abd after paracentesis. Abd less distended - 5500 removed yesterday - path pending. Hbg 6.9 and to be transfused today. Little appetite - taking po fluids well. Appears in no distress. Does become drowsy and has a difficult time focusing on conversation for long. - Constitutional Vitals: Abnormal lab results WBC 11.5 K/mcL (4.3-11.1) H 09/01/16 04:47 RBC 1.84 M/mcL (3.82-4.97) L 09/01/16 04:47 Hgb 6.9 g/dL (11.5-15.4) L 09/01/16 04:47 Hct 19.8 % (35.3-44.9) L 09/01/16 04:47 MCV 107.6 fL (83.0-100.0) H 09/01/16 04:47 MCH 37.5 pg (28.0-33.3) H 09/01/16 04:47 RDW 22.0 % (11.5-14.5) H 09/01/16 04:47 MPV 9.3 fL (9.4-12.4) L 09/01/16 04:47 Nucleated RBCs/100 WBC 0.1 /100 WBC (0) H 08/30/16 19:53 PT 16.0 Seconds (9.4-12.1) H 08/30/16 19:53 Sodium 132 mEq/L (136-145) L 09/01/16 04:47 Glucose 119 mg/dL (70-99) H 09/01/16 04:47 Calculated Osmolality 277 (280-300) L 09/01/16 04:47 Lactic Acid 2.3 mmol/L (0.5-2.2) H 08/30/16 19:53 Calcium 8.2 mg/dL (8.6-10.8) L 09/01/16 04:47 Iron 30 mcg/dL (50-170) L 08/30/16 19:53 Transferrin 129 mg/dL (180-382) L 08/30/16 19:53 Ferritin 1906 ng/ml (5-204) H 08/30/16 19:53 Total Bilirubin 6.7 mg/dL (0.2-1.2) H 08/30/16 19:53 Direct Bilirubin 4.9 mg/dL (0.0-0.5) H 08/30/16 19:53 Indirect Bilirubin 1.8 mg/dL (0.0-1.2) H 08/30/16 19:53 AST 193 Units/L (5-34) H 08/30/16 19:53 Alkaline Phosphatase 657 Units/L (38-126) H 08/30/16 19:53 Serum Total Protein 5.9 g/dL (6.0-8.3) L 08/30/16 19:53 Albumin 1.8 g/dL (3.5-5.0) L 08/31/16 14:47 Globulin 3.9 g/dL (2.4-3.5) H 08/30/16 19:53 Albumin/Globulin Ratio 0.5 (1.1-2.2) L 08/30/16 19:53 CA 125 Ag Serial Mntr 1289 U/mL (0-35) H 08/30/16 19:53 Vitamin B12 > 2000 pg/mL (213-816) H 08/30/16 19:53 Folate 3.2 ng/mL (7.0-31.4) L 08/30/16 19:53 Urine Color [place] (Yellow) A 08/31/16 06:02 Urine Clarity Cloudy (Clear) A 08/31/16 06:02 Urine Blood Trace (Negative) H 08/31/16 06:02 Urine Bilirubin Moderate (Negative) H 08/31/16 06:02 Ur Leukocyte Esterase Small (Negative) H 08/31/16 06:02 Urine Microscopic RBC 3-5 per hpf (0-3) H 08/31/16 06:02 Urine Microscopic WBC 5-15 per hpf (0-3) H 08/31/16 06:02 Ur Squamous Epith Cells Many per lpf (None-Few) H 08/31/16 06:02 Ur Culture Indicated? YES (NO) A 08/31/16 06:02 Peritoneal RBC 0.035 M/mcL (0.000-0.002) H 08/31/16 14:25 General appearance: Present: no acute distress - Respiratory Respiratory exam: Present: decreased breath sounds, CTAB - Cardiovascular Cardiovascular exam: Present: irregular rhythm - GI/Abdominal GI/Abdominal exam: Present: distended, normal bowel sounds - Additional comments: Skinner with galo colored urine - Extremities Exam Additional comments: 2-3+ edema bilateral lower extremities - Neurological Exam Neurological exam: Present: alert Additional comments: Oriented to name and place. Needs reoriented to time. Can express she is in hospital and awaiting test results. Generalized weakness - Skin Skin exam: Present: dry, warm Additional comments: Jaundiced Palliative Quality Palliative Quality: Screen for Code Status: NA (will address later), Screen for Goals of Care: NA (will address later), Screen for Pain: Yes, If Pain Regimen Started, Initiate Bowel Regimen: Yes, Screen for Nausea/Vomitting: Yes - Labs CBC & Chem 7: 09/01/16 04:47 09/01/16 04:47 Labs: Laboratory Results - last 24 hr 08/31/16 08/31/16 08/31/16 14:25 14:25 14:47 WBC RBC Hgb Hct MCV MCH MCHC RDW Plt Count MPV Immature Gran % Seg Neutrophils % Lymphocytes % Monocytes % Eosinophils % Basophils % Neutrophils # Lymphocytes # Monocytes # Eosinophils # Basophils # Sodium Potassium Chloride Carbon Dioxide BUN Creatinine Est GFR ( Amer) Est GFR (Non-Af Amer) BUN/Creatinine Ratio Glucose Calculated Osmolality Calcium Albumin 1.8 L Fluid Cholesterol 16 Peritoneal Appearance BLOODY Peritoneal Volume 60.0 Peritoneal pH 7.52 Peritoneal RBC 0.035 H Periton Tot Nuc Cells 161 Periton Neutrophils 56.0 Periton Band Neuts Test Not Performed Peritoneal Eosinophils Test Not Performed Peritoneal Basophils Test Not Performed Periton Lymphocytes % 42.0 Periton Monocytes % Test Not Performed Periton Other Cells % 2.0 Peritoneal Tot Protein 1.0 Peritoneal Albumin 0.5 Peritoneal LDH 108 Peritoneal Glucose 147 Peritoneal Amylase 15 Peritoneal Cholesterol 16 09/01/16 09/01/16 04:47 04:47 WBC 11.5 H RBC 1.84 L Hgb 6.9 L Hct 19.8 L MCV 107.6 H MCH 37.5 H MCHC 34.8 RDW 22.0 H Plt Count 192 MPV 9.3 L Immature Gran % 1.8 Seg Neutrophils % 66.3 Lymphocytes % 18.2 Monocytes % 9.3 Eosinophils % 3.7 Basophils % 0.7 Neutrophils # 7.6 Lymphocytes # 2.1 Monocytes # 1.1 Eosinophils # 0.4 Basophils # 0.1 Sodium 132 L Potassium 4.1 Chloride 106 Carbon Dioxide 21 BUN 19 Creatinine 0.82 Est GFR ( Amer) > 60 Est GFR (Non-Af Amer) > 60 BUN/Creatinine Ratio 23 Glucose 119 H Calculated Osmolality 277 L Calcium 8.2 L Albumin Fluid Cholesterol Peritoneal Appearance Peritoneal Volume Peritoneal pH Peritoneal RBC Periton Tot Nuc Cells Periton Neutrophils Periton Band Neuts Peritoneal Eosinophils Peritoneal Basophils Periton Lymphocytes % Periton Monocytes % Periton Other Cells % Peritoneal Tot Protein Peritoneal Albumin Peritoneal LDH Peritoneal Glucose Peritoneal Amylase Peritoneal Cholesterol - Impressions Impressions Paracentesis Ultrasound 08/31/16 21:30 IMPRESSION: Successful ultrasound guided diagnostic and therapeutic paracentesis. D/ / Bob Salcedo MD / Bob Salcedo MD Interpreting Provider: Bob Salcedo MD - ABG Interpretation ABG results: PT/INR, D-dimer PT 16.0 Seconds (9.4-12.1) H 08/30/16 19:53 Consult Discharge Plan - Plan Referrals: NO,PCP [Primary Care Provider] -
[2016-09-01] MEDS: *HR* Morphine Sulfate SR (12 HR) 15 MG TABLET.ER PO SCH ×2 (11:58→17:49)
--- NOTE | 2016-09-01 12:35 | Internal Med Progress Note ---
Date of Encounter: 09/01/16 Time of Encounter: 09:30 - Assessment and plan (1) Abdominal pain Current Visit: Yes Status: Acute Assessment and plan: Patient stating her pain is better controlled however she is restless and fidgeting on examination and unable to get comfortable. Patient readily admits that she takes care of everybody else besides herself. She states she would never ask for any extra medication from anybody including nurses. She was encouraged greatly to use the medication as needed. We will change her over to MS Olivier and schedule a twice a day. Will also add some lorazepam scheduled as the patient stating she is very anxious. She does not want the rest of her family to know about her diagnosis. She states that she would like to handle this on her own. Palliative care is on board as well as oncology. 08/31/16 On examination, patient is restless and irritable. She states she cannot get comfortable. Her answers are very baudilio and she gets annoyed when asked more than one question. I strongly suspect the patient has uncontrolled pain and I brought this up with the patient. She would be amenable to scheduled pain medication to assess her response. She certainly has several sources of possible pain. Imaging consistent with likely new diagnosis of ovarian cancer with several metastatic areas including lungs, liver, possible T12 lesion. Oncology and palliative care are on board. Paracentesis later today per IR. Nutrition also on board. We will initiate Ensure. Patient endorsing a very decreased appetite. She states that she had been drinking Ensure at home. Patient also denies shortness of breath, lung sounds decreased throughout, respirations unlabored. ITS Impressions Abdomen/Pelvis CT 08/30/16 18:48 IMPRESSION: Innumerable pulmonary nodules in the lung bases, concerning for metastatic disease. Innumerable ill-defined hypodense lesions within the liver, concerning for metastatic disease. Ascites, infiltration of the omentum, and nodularity of the peritoneal reflections, concerning for peritoneal carcinomatosis. Indeterminate lesion within the T12 vertebral body, possibly representing a metastatic lesion. Diverticulosis without obvious evidence of diverticulitis. D/ / Bob Garcia MD / Bob Garcia MD Interpreting Provider: Bob Garcia MD Chest X-Ray 01/08/17 18:50 IMPRESSION: Bilateral interstitial infiltrates questioning some interstitial edema. Pneumonia cannot be excluded. D/ / 08/30/2016 19:34:00 Elias Sanchez MD / dain Interpreting Provider: Elias Sanchez MD (2) Hyponatremia Current Visit: Yes Status: Acute Assessment and plan: Mild and associated with hypo-osmolality likely 2/to decreased by mouth intake, continue IV fluids, will trend. (3) Abnormal urinalysis Current Visit: Yes Status: Acute Assessment and plan: Urinalysis consistent with possible urinary tract infection. Leukocytosis also noted, will initiate ceftriaxone. Urine culture grossly mixed and unable to be interpreted. We will continue antibiotics at this time as the patient has distracting pain so dysuria may not be readily evident to her. (4) Anemia Current Visit: Yes Status: Acute Assessment and plan: Likely secondary to metastatic cancer. Oncology is on board, per their recommendations we will transfuse if her Hb drops below 7. Folate supplementation added. Hemoglobin 6.9 this morning, patient is symptomatic, we will transfuse her 2 units of packed red blood cells. (5) Malignancy Current Visit: Yes Status: Acute Assessment and plan: Oncology on board. IR performed a paracentesis yesterday with removal of 5500 and mouth purulent brown/red material. Repleted with albumin. Suspect possible primary ovarian etiology with metastasis to several locations including possible lungs, liver, spine. (6) Metastatic disease Current Visit: Yes Status: Acute (7) Peritoneal carcinomatosis Current Visit: Yes Status: Acute (8) Anxiety Current Visit: Yes Status: Acute Assessment and plan: Patient is displaying signs consistent with severe anxiety. Started on lorazepam. (9) Counseling regarding advanced care planning and goals of care Current Visit: Yes Status: Acute Assessment and plan: Palliative care is on board, planned for later today meeting with family, palliative, and patient. Suspected code status will be updated. - Subjective Interval history: Patient seen and examined. On examination, patient sitting upright in bed eating her breakfast. She is alert and oriented 3. Patient is complaining of pain to her bilateral flanks stating she has two pulled muscles. Patient states she is feeling better today. She states she slept well last night. - Constitutional Vitals: Temp Pulse Resp BP Pulse Ox 98.2 F 95 17 98/60 95 09/01/16 12:31 09/01/16 12:31 09/01/16 12:31 09/01/16 12:31 09/01/16 12:31 General appearance: Present: disheveled, mild distress (2/2 agitation), A&O X 3 , pleasant, loss of weight, answers questions appropriately - Head Head exam: Present: atraumatic, normocephalic - Eye Eye exam: Present: PERRL, conjuntiva pink, sclera anicteric Pupils: Present: PERRL - Neck Neck exam general surgery: Present: supple, trachea midline. Absent: lymphadenopathy - Respiratory Respiratory exam: Present: decreased breath sounds. Absent: accessory muscle use, rales, respiratory distress, rhonchi, wheezes - Cardiovascular Cardiovascular exam: Present: RRR, +S1, +S2, tachycardia. Absent: diastolic murmur, gallop, rubs, systolic murmur - GI/Abdominal GI/Abdominal exam: Present: distended, firm, normal bowel sounds, tenderness - Extremities Exam Extremities exam: Present: warm, radial pulses palpable and symetrical. Absent : calf tenderness, cyanotic, pedal edema - Neurological Exam Neurological exam: Present: alert, CN II-XII intact, oriented X3, no focal deficits, strengths equal and symetr throughout. Absent: pronater drift, facial droop, speech deficit - Skin Skin exam: Present: dry, intact, pallor (jaundiced), warm Internal Medicine: Result - Labs CBC & Chem 7: 09/01/16 04:47 09/01/16 04:47 Labs: Short CBC 09/01/16 Range/Units 04:47 WBC 11.5 H (4.3-11.1) K/mcL Hgb 6.9 L (11.5-15.4) g/dL Hct 19.8 L (35.3-44.9) % Plt Count 192 (140-400) K/mcL Neutrophils # 7.6 (1.6-8.9) K/mcL BMP 09/01/16 04:47 Sodium 132 L Potassium 4.1 Chloride 106 Carbon Dioxide 21 BUN 19 Creatinine 0.82 Glucose 119 H Calcium 8.2 L Liver Function 08/31/16 Range/Units 14:47 Albumin 1.8 L (3.5-5.0) g/dL - ABG Interpretation ABG results: PT/INR, D-dimer PT 16.0 Seconds (9.4-12.1) H 08/30/16 19:53 - Impressions Impressions Paracentesis Ultrasound 08/31/16 21:30 IMPRESSION: Successful ultrasound guided diagnostic and therapeutic paracentesis. D/ / Bob Salcedo MD / Bob Salcedo MD Interpreting Provider: Bob Salcedo MD Consult Discharge Plan - Plan Referrals: NO,PCP [Primary Care Provider] -
[2016-09-01] MEDS ORDERED: *HR* LORazepam 0.5 MG TABLET PO SCH (12:45)
--- NOTE | 2016-09-01 16:09 | Oncology Inp Progress Note ---
<Trish Colunga E - Last Filed: 09/01/16 16:06> Date of Encounter: 09/01/16 Time of Encounter: 14:30 (1) Anemia Current Visit: Yes Status: Acute Assessment and plan: Currently receiving packed cells. Qualifiers: Anemia type: folate deficiency Folate deficiency anemia type: dietary Qualified Code(s): D52.0 - Dietary folate deficiency anemia (2) Malignancy Current Visit: Yes Status: Acute Assessment and plan: Pathology pending. Will discuss further with patient once these results are available. Oncology: Subj Interval history: Patient very drowsy during encounter. Daughter states she just had pain medication. Patient did state that she is much more comfortable today since she had paracentesis yesterday. Breathing has improved and abdominal pain has decreased. 5500 ml removed. Hemoglobin 6.9. She is receiving packed cells. Appetite poor. Denies difficulty urinating. - Constitutional Vitals: Vital Signs Temp Pulse Resp BP Pulse Ox 09/01/16 15:53 98.0 F 91 18 102/64 96 09/01/16 14:20 97.7 F 97 16 92/52 93 L 09/01/16 14:05 98.4 F 99 16 97/59 95 09/01/16 12:33 98.2 F 95 17 98/60 95 09/01/16 12:31 98.2 F 95 17 98/60 95 09/01/16 11:44 98.4 F 98 17 103/75 95 09/01/16 10:07 99.0 F 99 17 93/54 95 09/01/16 09:52 97.6 F 100 17 99/58 92 L 09/01/16 09:20 95 09/01/16 07:41 97.7 F 104 16 103/51 93 L 09/01/16 05:11 98.3 F 110 16 102/53 93 L 09/01/16 00:52 97.9 F 79 14 102/59 95 08/31/16 21:00 97.9 F 98 10 99/61 93 L Intake and Output 09/01/16 09/01/16 09/01/16 07:59 15:59 23:59 Intake Total 300 / 300 300 / 300 Output Total 900 / 900 500 / 500 Balance -600 / -600 -200 / -200 Intake: IV Fluids 300 / 300 0.9 % Sodium Chloride 1, 300 / 300 000 ML @ 60 mls/hr IVC . [id number] [facility] Rx#: [id number] Oral 0 / 0 0 / 0 Blood Product 300 / 300 Rbcs Leuko Poor As-1 0 / 0 Unit [id number] Rbcs Leuko Poor As-3 2nd 300 / 300 Unit [id number] Output: Urine 450 / 450 200 / 200 Urethral (Skinner) 450 / 450 Catheter 450 / 450 300 / 300 Other: Weight 53.615 kg Patient Weight 09/01/16 23:59 Weight 53.615 kg General appearance: no acute distress, thin - Head Head exam: Present: normal inspection - Eye Eye exam: Present: scleral icterus - ENT ENT exam: Present: mucous membranes dry - Respiratory Respiratory exam: Present: CTAB - Cardiovascular Cardiovascular exam: Present: RRR - GI/Abdominal GI/Abdominal exam: Present: distended (Slightly distended but soft with slight tenderness on palpation) - Extremities Exam Extremities exam: Present: normal inspection - Skin Skin exam: Present: warm (Appears jaundiced) - Additional findings Additional findings: IVs intact is currently receiving packed cells. Oncology: Obj Data - Labs CBC & Chem 7: 09/01/16 04:47 09/01/16 04:47 Labs: Laboratory Results - last 24 hr 08/31/16 08/31/16 09/01/16 14:25 14:25 04:47 WBC 11.5 H RBC 1.84 L Hgb 6.9 L Hct 19.8 L MCV 107.6 H MCH 37.5 H MCHC 34.8 RDW 22.0 H Plt Count 192 MPV 9.3 L Immature Gran % 1.8 Seg Neutrophils % 66.3 Lymphocytes % 18.2 Monocytes % 9.3 Eosinophils % 3.7 Basophils % 0.7 Neutrophils # 7.6 Lymphocytes # 2.1 Monocytes # 1.1 Eosinophils # 0.4 Basophils # 0.1 Sodium Potassium Chloride Carbon Dioxide BUN Creatinine Est GFR ( Amer) Est GFR (Non-Af Amer) BUN/Creatinine Ratio Glucose Calculated Osmolality Calcium Fluid Cholesterol 16 Peritoneal Appearance BLOODY Peritoneal Volume 60.0 Peritoneal pH 7.52 Peritoneal RBC 0.035 H Periton Tot Nuc Cells 161 Periton Neutrophils 56.0 Periton Band Neuts Test Not Performed Peritoneal Eosinophils Test Not Performed Peritoneal Basophils Test Not Performed Periton Lymphocytes % 42.0 Periton Monocytes % Test Not Performed Periton Other Cells % 2.0 Peritoneal Tot Protein 1.0 Peritoneal Albumin 0.5 Peritoneal LDH 108 Peritoneal Glucose 147 Peritoneal Amylase 15 Peritoneal Cholesterol 16 09/01/16 04:47 WBC RBC Hgb Hct MCV MCH MCHC RDW Plt Count MPV Immature Gran % Seg Neutrophils % Lymphocytes % Monocytes % Eosinophils % Basophils % Neutrophils # Lymphocytes # Monocytes # Eosinophils # Basophils # Sodium 132 L Potassium 4.1 Chloride 106 Carbon Dioxide 21 BUN 19 Creatinine 0.82 Est GFR ( Amer) > 60 Est GFR (Non-Af Amer) > 60 BUN/Creatinine Ratio 23 Glucose 119 H Calculated Osmolality 277 L Calcium 8.2 L Fluid Cholesterol Peritoneal Appearance Peritoneal Volume Peritoneal pH Peritoneal RBC Periton Tot Nuc Cells Periton Neutrophils Periton Band Neuts Peritoneal Eosinophils Peritoneal Basophils Periton Lymphocytes % Periton Monocytes % Periton Other Cells % Peritoneal Tot Protein Peritoneal Albumin Peritoneal LDH Peritoneal Glucose Peritoneal Amylase Peritoneal Cholesterol - Impressions Currently receiving packed cells for hemoglobin of 6.9. - ABG Interpretation ABG results: PT/INR, D-dimer PT 16.0 Seconds (9.4-12.1) H 08/30/16 19:53 Consult Discharge Plan - Plan Referrals: NO,PCP [Primary Care Provider] - Attestation: My signature below is to certify that this patient is under my care and that I, or nurse practitioner, or a physician's mailing machine assistant working with me, has a face-to -face encounter with this patient. <Jeff Jose - Last Filed: 09/02/16 15:07> Oncology: Subj Interval history: I saw and personally examined Ms. Ashby at her bedside today and reviewed the chart for details of ongoing care by hospital team. I verified/agree with the history and physical exam findings documented by Anai Colunga CNP above. Oncologist following for suspected peritoneal carcinomatosis from an unknown primary cancer based on presentation with symptomatic ascites. She had paracentesis 5500 mL fluid and pathology is pending. She also has an unexplained anemia and workup is positive for folate deficiency and she has been started on appropriate further supplement. She is receiving transfusion support for her anemia. She is feeling a bit more comfortable today and pain is controlled with current regimen. Vital signs are stable. Systems exam as documented above. Suspected malignant ascites: Elevated CEA 125 makes ovarian cancer high in the differential. We will wait for definitive confirmation per pathology right to definitive treatment/ prognostic recommendations. Anemia: I agree with ongoing supportive measures including transudate support as needed , folate supplementation. We'll monitor. Will follow patient along with you while in house but please do not hesitate to call regarding interval oncologic questions that may arise. Further discussion regarding treatment/prognosis to be based on pathology. This can be completed as an outpatient if she is medically optimal otherwise. - Constitutional Vitals: Vital Signs Temp Pulse Resp BP Pulse Ox 09/02/16 11:04 97.7 F 98 14 100/63 94 L 09/02/16 07:42 97.9 F 101 14 96/55 94 L 09/02/16 04:54 97.6 F 98 17 122/69 93 L 09/01/16 23:40 98.4 F 90 15 90/55 96 09/01/16 20:30 92 L 09/01/16 18:46 98.2 F 81 16 104/67 92 L 09/01/16 17:33 98.6 F 89 18 98/53 96 09/01/16 15:53 98.0 F 91 18 102/64 96 Intake and Output 09/02/16 09/02/16 09/02/16 00:59 08:59 16:59 Intake Total 1350 / 1350 497 / 497 623 / 623 Output Total 100 / 100 200 / 200 100 / 100 Balance 1250 / 1250 297 / 297 523 / 523 Intake: IV Fluids 800 / 800 377 / 377 623 / 623 0.9 % Sodium Chloride 1, 700 / 700 377 / 377 623 / 623 000 ML @ 75 mls/hr IVC . [id number] [facility] Rx#: [id number] Rocephin 1,000 MG In 100 / 100 Dextrose 5% (Minibag+) 100 ML 100 ML @ 200 mls/ hr IVPB Q24H [facility] Rx#: [id number] Oral 240 / 240 120 / 120 0 / 0 Blood Product 310 / 310 Rbcs Leuko Poor As-1 310 / 310 Unit [id number] Output: Urine 100 / 100 200 / 200 Catheter 0 / 0 100 / 100 Other: Meal Dinner Lunch Percent of Meal Consumed 25% 5% Oncology: Obj Data - Labs CBC & Chem 7: 09/02/16 05:27 09/02/16 05:27 Labs: Laboratory Results - last 24 hr 08/30/16 09/01/16 09/02/16 23:03 18:52 05:27 WBC 12.9 H RBC 2.97 L Hgb 9.7 L D 10.5 L Hct 27.5 L 30.1 L MCV 101.3 H MCH 35.4 H MCHC 34.9 RDW 23.1 H Plt Count 195 MPV 9.5 Immature Gran % 1.8 Seg Neutrophils % 77.5 Lymphocytes % 10.5 Monocytes % 7.4 Eosinophils % 1.9 Basophils % 0.9 Neutrophils # 10.0 H Lymphocytes # 1.4 Monocytes # 1.0 Eosinophils # 0.3 Basophils # 0.1 Nucleated RBCs/100 WBC 0.2 H Platelet Estimate Normal Large Platelets Present A Polychromasia 2+ A Anisocytosis 2+ A Macrocytosis Present A Sodium Potassium Chloride Carbon Dioxide BUN Creatinine Est GFR ( Amer) Est GFR (Non-Af Amer) BUN/Creatinine Ratio Glucose Calculated Osmolality Calcium Tumor Marker AFP 3 CA 15-3 Antigen 24 CA 19-9 Antigen 252 H 09/02/16 05:27 WBC RBC Hgb Hct MCV MCH MCHC RDW Plt Count MPV Immature Gran % Seg Neutrophils % Lymphocytes % Monocytes % Eosinophils % Basophils % Neutrophils # Lymphocytes # Monocytes # Eosinophils # Basophils # Nucleated RBCs/100 WBC Platelet Estimate Large Platelets Polychromasia Anisocytosis Macrocytosis Sodium 135 L Potassium 4.3 Chloride 107 Carbon Dioxide 20 BUN 17 Creatinine 0.84 Est GFR ( Amer) > 60 Est GFR (Non-Af Amer) > 60 BUN/Creatinine Ratio 20 Glucose 138 H Calculated Osmolality 284 Calcium 8.4 L Tumor Marker AFP CA 15-3 Antigen CA 19-9 Antigen - ABG Interpretation ABG results: PT/INR, D-dimer PT 16.0 Seconds (9.4-12.1) H 08/30/16 19:53 Attestation: My signature below is to certify that this patient is under my care and that I, or nurse practitioner, or a physician's mailing machine assistant working with me, has a face-to -face encounter with this patient.
[2016-09-01] MEDS: Albumin 25% 25gram/100mL 25 GM/100 ML IV.SOLN IVPB SCH (16:51)
[2016-09-01] MEDS: Pantoprazole 40 MG VIAL IVP SCH (18:34)
[2016-09-01 19:01] LABS: Hematocrit 27.5 % (35.3-44.9)
[2016-09-01 19:02] LABS: Hemoglobin 9.7 g/dL (11.5-15.4)
[2016-09-01] MEDS: 0.9 % Sodium Chloride 1,000 ML IVC SCH (23:46)
[2016-09-02] MEDS: 0.9 % Sodium Chloride 1,000 ML IVC SCH ×2 (01:00→14:42)
[2016-09-02] MEDS: *HR* Morphine Sulfate SR (12 HR) 15 MG TABLET.ER PO SCH ×2 (05:10→18:18)
[2016-09-02] MEDS: Pantoprazole 40 MG VIAL IVP SCH ×2 (05:11→18:18)
[2016-09-02 05:44] LABS: Basophils # 0.1 K/mcL (0.0-0.2); Basophils % 0.9 %; Eosinophils % 1.9 %; Hematocrit 30.1 % (35.3-44.9); Hemoglobin 10.5 g/dL (11.5-15.4); Immature Granulocytes % 1.8 % (0-4); Lymphocytes # 1.4 K/mcL (0.6-4.6); Lymphocytes % 10.5 %; Mean Corpuscular HGB Conc 34.9 g/dL (31.6-35.5); Mean Corpuscular Hemoglobin 35.4 pg (28.0-33.3); Mean Corpuscular Volume 101.3 fL (83.0-100.0); Mean Platelet Volume 9.5 fL (9.4-12.4); Monocytes % 7.4 %; Nucleated Red Blood Cells 0.2 /100 WBC (0); Platelet Count 195 K/mcL (140-400); Red Blood Count 2.97 M/mcL (3.82-4.97); Red Cell Distribution Width 23.1 % (11.5-14.5); Segmented Neutrophils % 77.5 %
[2016-09-02 05:47] LABS: Eosinophils # 0.3 K/mcL (0.0-0.6)
[2016-09-02 05:59] LABS: BUN/Creatinine Ratio 20 (6-26); Blood Urea Nitrogen 17 mg/dL (7-20); Calcium 8.4 mg/dL (8.6-10.8); Carbon Dioxide 20 mEq/L (19-29); Chloride 107 mEq/L (98-109); Glucose 138 mg/dL (70-99); Osmolality,Calculated 284 (280-300); Potassium 4.3 mEq/L (3.5-4.5); Sodium 135 mEq/L (136-145); eGFR For African Americans > 60 (> 60); eGFR For Non-African Americans > 60 (> 60)
[2016-09-02 06:04] LABS: Anisocytosis 2+ (Not Present); Large Platelets Present (Not Present); Macrocytosis Present (Not Present); Platelet Estimate Normal (Normal); Polychromasia 2+ (Not Present)
[2016-09-02 08:12] LABS: AFP Tumor Marker Non-Pregnant 3 ng/mL (0-9); Cancer Antigen-GI (CA 19-9) 252 U/mL (0-37)
[2016-09-02 08:13] LABS: Cancer Antigen-Breast (CA 15-3 24 U/mL (0-31)
[2016-09-02] MEDS: *HR* Enoxaparin 30 MG/0.3 ML SYRINGE SQ SCH ×2 (08:57→20:57)
--- NOTE | 2016-09-02 09:47 | Palliative Progress Note ---
Date of Encounter: 09/02/16 Time of Encounter: 09:45 - Assessment and plan (1) Abdominal pain Current Visit: Yes Status: Acute Assessment and plan: Appears quite drowsy, does awaken easily. However, states pain is better. Has not utilized any Oxycodone for breakthrough. Continue MS Contin 15 bid. Monitor mental status. Qualifiers: Abdominal location: generalized Qualified Code(s): R10.84 - Generalized abdominal pain (2) Nausea Current Visit: Yes Status: Acute Assessment and plan: Continue antiemetics PRN and monitor. Denies nausea this am. (3) Counseling regarding advanced care planning and goals of care Current Visit: Yes Status: Acute Assessment and plan: PT/OT to see today - she may need rehab. Fluid cytology remains pending. POA done. Still undecided on code status - will continue to address throughout stay. Patient has been very reluctant to discuss. (4) Peritoneal carcinomatosis Current Visit: Yes Status: Acute (5) Metastatic disease Current Visit: Yes Status: Acute (6) Anemia Current Visit: Yes Status: Acute Qualifiers: Anemia type: folate deficiency Folate deficiency anemia type: dietary Qualified Code(s): D52.0 - Dietary folate deficiency anemia - Time Spent With Patient Total time spent is greater than 50% in coordination of care (as documented) at patient's floor/unit and/or counseling patient: 25 - 35 minutes - Subjective Interval history: Patient sleeping on my arrival - awakens easily when name called. States pain better - still with discomfort left lower back with movement. Ate better this am, however, needed assistance. No family present yet. - Constitutional Vitals: Abnormal lab results WBC 12.9 K/mcL (4.3-11.1) H 09/02/16 05:27 RBC 2.97 M/mcL (3.82-4.97) L 09/02/16 05:27 Hgb 10.5 g/dL (11.5-15.4) L 09/02/16 05:27 Hct 30.1 % (35.3-44.9) L 09/02/16 05:27 MCV 101.3 fL (83.0-100.0) H 09/02/16 05:27 MCH 35.4 pg (28.0-33.3) H 09/02/16 05:27 RDW 23.1 % (11.5-14.5) H 09/02/16 05:27 Neutrophils # 10.0 K/mcL (1.6-8.9) H 09/02/16 05:27 Nucleated RBCs/100 WBC 0.2 /100 WBC (0) H 09/02/16 05:27 Large Platelets Present (Not Present) A 09/02/16 05:27 Polychromasia 2+ (Not Present) A 09/02/16 05:27 Anisocytosis 2+ (Not Present) A 09/02/16 05:27 Macrocytosis Present (Not Present) A 09/02/16 05:27 PT 16.0 Seconds (9.4-12.1) H 08/30/16 19:53 Sodium 135 mEq/L (136-145) L 09/02/16 05:27 Glucose 138 mg/dL (70-99) H 09/02/16 05:27 Lactic Acid 2.3 mmol/L (0.5-2.2) H 08/30/16 19:53 Calcium 8.4 mg/dL (8.6-10.8) L 09/02/16 05:27 Iron 30 mcg/dL (50-170) L 08/30/16 19:53 Transferrin 129 mg/dL (180-382) L 08/30/16 19:53 Ferritin 1906 ng/ml (5-204) H 08/30/16 19:53 Total Bilirubin 6.7 mg/dL (0.2-1.2) H 08/30/16 19:53 Direct Bilirubin 4.9 mg/dL (0.0-0.5) H 08/30/16 19:53 Indirect Bilirubin 1.8 mg/dL (0.0-1.2) H 08/30/16 19:53 AST 193 Units/L (5-34) H 08/30/16 19:53 Alkaline Phosphatase 657 Units/L (38-126) H 08/30/16 19:53 Serum Total Protein 5.9 g/dL (6.0-8.3) L 08/30/16 19:53 Albumin 1.8 g/dL (3.5-5.0) L 08/31/16 14:47 Globulin 3.9 g/dL (2.4-3.5) H 08/30/16 19:53 Albumin/Globulin Ratio 0.5 (1.1-2.2) L 08/30/16 19:53 CA 19-9 Antigen 252 U/mL (0-37) H 08/30/16 23:03 CA 125 Ag Serial Mntr 1289 U/mL (0-35) H 08/30/16 19:53 Vitamin B12 > 2000 pg/mL (213-816) H 08/30/16 19:53 Folate 3.2 ng/mL (7.0-31.4) L 08/30/16 19:53 Urine Color Dierks (Yellow) A 08/31/16 06:02 Urine Clarity Cloudy (Clear) A 08/31/16 06:02 Urine Blood Trace (Negative) H 08/31/16 06:02 Urine Bilirubin Moderate (Negative) H 08/31/16 06:02 Ur Leukocyte Esterase Small (Negative) H 08/31/16 06:02 Urine Microscopic RBC 3-5 per hpf (0-3) H 08/31/16 06:02 Urine Microscopic WBC 5-15 per hpf (0-3) H 08/31/16 06:02 Ur Squamous Epith Cells Many per lpf (None-Few) H 08/31/16 06:02 Ur Culture Indicated? YES (NO) A 08/31/16 06:02 Peritoneal RBC 0.035 M/mcL (0.000-0.002) H 08/31/16 14:25 General appearance: Present: no acute distress - Expanded Respiratory Exam Location: decreased breath sounds: Lower, Left, Right, rales: Left, Lower - Cardiovascular Cardiovascular exam: Present: +S1, +S2, tachycardia - GI/Abdominal GI/Abdominal exam: Present: diminished bowel sounds, distended, soft - Extremities Exam Additional comments: 2+ edema to lower extremities bilaterally - Neurological Exam Neurological exam: Present: alert, oriented X3, strengths equal and symetr throughout Additional comments: Generalized weakness, follows simple commands. - Skin Skin exam: Present: dry, warm Palliative Quality Palliative Quality: Screen for Code Status: Yes, Screen for Goals of Care: Yes, Screen for Pain: Yes, If Pain Regimen Started, Initiate Bowel Regimen: Yes, Screen for Nausea/Vomitting: Yes - Labs CBC & Chem 7: 09/02/16 05:27 09/02/16 05:27 Labs: Laboratory Results - last 24 hr 08/30/16 09/01/16 09/02/16 23:03 18:52 05:27 WBC 12.9 H RBC 2.97 L Hgb 9.7 L D 10.5 L Hct 27.5 L 30.1 L MCV 101.3 H MCH 35.4 H MCHC 34.9 RDW 23.1 H Plt Count 195 MPV 9.5 Immature Gran % 1.8 Seg Neutrophils % 77.5 Lymphocytes % 10.5 Monocytes % 7.4 Eosinophils % 1.9 Basophils % 0.9 Neutrophils # 10.0 H Lymphocytes # 1.4 Monocytes # 1.0 Eosinophils # 0.3 Basophils # 0.1 Nucleated RBCs/100 WBC 0.2 H Platelet Estimate Normal Large Platelets Present A Polychromasia 2+ A Anisocytosis 2+ A Macrocytosis Present A Sodium Potassium Chloride Carbon Dioxide BUN Creatinine Est GFR ( Amer) Est GFR (Non-Af Amer) BUN/Creatinine Ratio Glucose Calculated Osmolality Calcium Tumor Marker AFP 3 CA 15-3 Antigen 24 CA 19-9 Antigen 252 H 09/02/16 05:27 WBC RBC Hgb Hct MCV MCH MCHC RDW Plt Count MPV Immature Gran % Seg Neutrophils % Lymphocytes % Monocytes % Eosinophils % Basophils % Neutrophils # Lymphocytes # Monocytes # Eosinophils # Basophils # Nucleated RBCs/100 WBC Platelet Estimate Large Platelets Polychromasia Anisocytosis Macrocytosis Sodium 135 L Potassium 4.3 Chloride 107 Carbon Dioxide 20 BUN 17 Creatinine 0.84 Est GFR ( Amer) > 60 Est GFR (Non-Af Amer) > 60 BUN/Creatinine Ratio 20 Glucose 138 H Calculated Osmolality 284 Calcium 8.4 L Tumor Marker AFP CA 15-3 Antigen CA 19-9 Antigen - ABG Interpretation ABG results: PT/INR, D-dimer PT 16.0 Seconds (9.4-12.1) H 08/30/16 19:53 Consult Discharge Plan - Plan Referrals: NO,PCP [Primary Care Provider] -
--- NOTE | 2016-09-02 12:20 | Internal Med Progress Note ---
Date of Encounter: 09/02/16 Time of Encounter: 09:45 - Assessment and plan (1) Abdominal pain Current Visit: Yes Status: Acute Assessment and plan: Patient has been started on scheduled MS Contin twice a day per palliative. She appears much more comfortable. She is able to lay still while conversing whereas the first 2 days if her admission, she would drive and not be able to get comfortable in bed. We will continue pain management. Biopsies pending, oncology also on board. 09/01/16 Patient stating her pain is better controlled however she is restless and fidgeting on examination and unable to get comfortable. Patient readily admits that she takes care of everybody else besides herself. She states she would never ask for any extra medication from anybody including nurses. She was encouraged greatly to use the medication as needed. We will change her over to MS Contin and schedule a twice a day. Will also add some lorazepam scheduled as the patient stating she is very anxious. She does not want the rest of her family to know about her diagnosis. She states that she would like to handle this on her own. Palliative care is on board as well as oncology. 08/31/16 On examination, patient is restless and irritable. She states she cannot get comfortable. Her answers are very baudilio and she gets annoyed when asked more than one question. I strongly suspect the patient has uncontrolled pain and I brought this up with the patient. She would be amenable to scheduled pain medication to assess her response. She certainly has several sources of possible pain. Imaging consistent with likely new diagnosis of ovarian cancer with several metastatic areas including lungs, liver, possible T12 lesion. Oncology and palliative care are on board. Paracentesis later today per IR. Nutrition also on board. We will initiate Ensure. Patient endorsing a very decreased appetite. She states that she had been drinking Ensure at home. Patient also denies shortness of breath, lung sounds decreased throughout, respirations unlabored. ITS Impressions Abdomen/Pelvis CT 08/30/16 18:48 IMPRESSION: Innumerable pulmonary nodules in the lung bases, concerning for metastatic disease. Innumerable ill-defined hypodense lesions within the liver, concerning for metastatic disease. Ascites, infiltration of the omentum, and nodularity of the peritoneal reflections, concerning for peritoneal carcinomatosis. Indeterminate lesion within the T12 vertebral body, possibly representing a metastatic lesion. Diverticulosis without obvious evidence of diverticulitis. D/ / Bob Garcia MD / Bob Garcia MD Interpreting Provider: Bob Garcia MD Chest X-Ray 08/30/16 18:50 IMPRESSION: Bilateral interstitial infiltrates questioning some interstitial edema. Pneumonia cannot be excluded. D/ / 08/30/2016 19:34:00 Elias Sanchez MD / dain Interpreting Provider: Elias Sanchez MD (2) Hyponatremia Current Visit: Yes Status: Acute Assessment and plan: Nearly resolved, osmolality resolved. Continue IV fluids, will trend. (3) Abnormal urinalysis Current Visit: Yes Status: Acute Assessment and plan: Urinalysis consistent with possible urinary tract infection. Leukocytosis also noted, will initiate ceftriaxone. Urine culture grossly mixed and unable to be interpreted. We will continue antibiotics at this time as the patient has distracting pain so dysuria may not be readily evident to her. (4) Anemia Current Visit: Yes Status: Acute Assessment and plan: Likely secondary to metastatic cancer. Oncology is on board, per their recommendations we will transfuse if her Hb drops below 7. Folate supplementation added. Hemoglobin 6.9 yesterday and the patient was transfused 2 units of packed red blood cells. She remains hemodynamically stable today. (5) Malignancy Current Visit: Yes Status: Acute Assessment and plan: Oncology on board. IR performed a paracentesis with removal of 5500 and dark, purulent brown/red material. Repleted with albumin. Suspect possible primary ovarian etiology with metastasis to several locations including possible lungs, liver, spine. (6) Metastatic disease Current Visit: Yes Status: Acute (7) Peritoneal carcinomatosis Current Visit: Yes Status: Acute (8) Anxiety Current Visit: Yes Status: Acute Assessment and plan: Patient was started on lorazepam however she became too drowsy with MS Contin. Lorazepam changed to as needed. She appears much more comfortable and calm today. (9) Counseling regarding advanced care planning and goals of care Current Visit: Yes Status: Acute Assessment and plan: Palliative care is on board. Physical therapy has recommended ECF placement. Patient and family was not ready to discuss CODE STATUS, will continue to slowly broach this topic - Subjective Interval history: Patient seen and examined. On examination, patient initially asleep in bed. She awakened easily to voice and stated she was feeling "a lot better." She states she has been able to eat a little bit and denies nausea or vomiting at this time. - Constitutional Vitals: Temp Pulse Resp BP Pulse Ox 97.7 F 98 14 100/63 94 L 09/02/16 11:04 09/02/16 11:04 09/02/16 11:04 09/02/16 11:04 09/02/16 11:04 General appearance: Present: A&O X 3, pleasant, no acute distress, loss of weight, answers questions appropriately - Head Head exam: Present: atraumatic, normocephalic - Eye Eye exam: Present: PERRL, conjuntiva pink, sclera anicteric Pupils: Present: PERRL - Neck Neck exam general surgery: Present: supple, trachea midline. Absent: lymphadenopathy - Respiratory Respiratory exam: Present: decreased breath sounds. Absent: accessory muscle use, rales, respiratory distress, rhonchi, wheezes - Cardiovascular Cardiovascular exam: Present: RRR, +S1, +S2. Absent: diastolic murmur, gallop, rubs, systolic murmur - GI/Abdominal GI/Abdominal exam: Present: normal bowel sounds, soft, tenderness (diffuse), no peritoneal signs. Absent: distended - Extremities Exam Extremities exam: Present: warm, radial pulses palpable and symetrical. Absent : calf tenderness, cyanotic, pedal edema - Neurological Exam Neurological exam: Present: alert, CN II-XII intact, oriented X3, no focal deficits. Absent: pronater drift, facial droop, speech deficit - Skin Skin exam: Present: dry, intact, pallor (and jaundiced), warm Internal Medicine: Result - Labs CBC & Chem 7: 09/02/16 05:27 09/02/16 05:27 Labs: Short CBC 09/01/16 09/02/16 Range/Units 18:52 05:27 WBC 12.9 H (4.3-11.1) K/mcL Hgb 9.7 L D 10.5 L (11.5-15.4) g/dL Hct 27.5 L 30.1 L (35.3-44.9) % Plt Count 195 (140-400) K/mcL Neutrophils # 10.0 H (1.6-8.9) K/mcL BMP 09/02/16 05:27 Sodium 135 L Potassium 4.3 Chloride 107 Carbon Dioxide 20 BUN 17 Creatinine 0.84 Glucose 138 H Calcium 8.4 L - ABG Interpretation ABG results: PT/INR, D-dimer PT 16.0 Seconds (9.4-12.1) H 08/30/16 19:53 Consult Discharge Plan - Plan Referrals: NO,PCP [Primary Care Provider] -
[2016-09-03 04:38] LABS: Basophils # 0.1 K/mcL (0.0-0.2); Basophils % 0.8 %; Eosinophils # 0.3 K/mcL (0.0-0.6); Eosinophils % 2.2 %; Hematocrit 28.2 % (35.3-44.9); Hemoglobin 9.7 g/dL (11.5-15.4); Immature Granulocytes % 1.6 % (0-4); Lymphocytes # 1.6 K/mcL (0.6-4.6); Lymphocytes % 12.8 %; Mean Corpuscular HGB Conc 34.4 g/dL (31.6-35.5); Mean Corpuscular Hemoglobin 35.7 pg (28.0-33.3); Mean Corpuscular Volume 103.7 fL (83.0-100.0); Mean Platelet Volume 9.7 fL (9.4-12.4); Neutrophils # 9.1 K/mcL (1.6-8.9); Platelet Count 188 K/mcL (140-400); Red Blood Count 2.72 M/mcL (3.82-4.97); Red Cell Distribution Width 22.6 % (11.5-14.5); Segmented Neutrophils % 74.6 %
[2016-09-03 04:41] LABS: BUN/Creatinine Ratio 26 (6-26); Blood Urea Nitrogen 21 mg/dL (7-20); Calcium 8.3 mg/dL (8.6-10.8); Carbon Dioxide 20 mEq/L (19-29); Chloride 109 mEq/L (98-109); Glucose 114 mg/dL (70-99); Osmolality,Calculated 284 (280-300); Potassium 4.4 mEq/L (3.5-4.5); Sodium 135 mEq/L (136-145); eGFR For African Americans > 60 (> 60); eGFR For Non-African Americans > 60 (> 60)
[2016-09-03] MEDS: 0.9 % Sodium Chloride 1,000 ML IVC SCH ×2 (05:11→19:11)
[2016-09-03] MEDS: *HR* Morphine Sulfate SR (12 HR) 15 MG TABLET.ER PO SCH ×2 (05:11→17:56)
[2016-09-03] MEDS: Pantoprazole 40 MG VIAL IVP SCH ×2 (05:12→17:56)
[2016-09-03] MEDS: *HR* Enoxaparin 30 MG/0.3 ML SYRINGE SQ SCH ×2 (09:55→20:41)
--- NOTE | 2016-09-03 10:54 | Internal Med Progress Note ---
Date of Encounter: 09/03/16 Time of Encounter: 09:15 - Assessment and plan (1) Abdominal pain Current Visit: Yes Status: Acute Assessment and plan: Patient appears much more comfortable however quite drowsy this morning. She complains of back pain and continues to rise and pain. She states she does not have an appetite. Patient prior to admission was smoking marijuana every day so I discussed with her initiation of Marinol and she stated she would like to try it to see if it would help stimulate her appetite and help control her pain. Palliative and oncology remain on board. Biopsies pending. 09/02/16 Patient has been started on scheduled MS Contin twice a day per palliative. She appears much more comfortable. She is able to lay still while conversing whereas the first 2 days if her admission, she would drive and not be able to get comfortable in bed. We will continue pain management. Biopsies pending, oncology also on board. 09/01/16 Patient stating her pain is better controlled however she is restless and fidgeting on examination and unable to get comfortable. Patient readily admits that she takes care of everybody else besides herself. She states she would never ask for any extra medication from anybody including nurses. She was encouraged greatly to use the medication as needed. We will change her over to MS Contin and schedule a twice a day. Will also add some lorazepam scheduled as the patient stating she is very anxious. She does not want the rest of her family to know about her diagnosis. She states that she would like to handle this on her own. Palliative care is on board as well as oncology. 08/31/16 On examination, patient is restless and irritable. She states she cannot get comfortable. Her answers are very baudilio and she gets annoyed when asked more than one question. I strongly suspect the patient has uncontrolled pain and I brought this up with the patient. She would be amenable to scheduled pain medication to assess her response. She certainly has several sources of possible pain. Imaging consistent with likely new diagnosis of ovarian cancer with several metastatic areas including lungs, liver, possible T12 lesion. Oncology and palliative care are on board. Paracentesis later today per IR. Nutrition also on board. We will initiate Ensure. Patient endorsing a very decreased appetite. She states that she had been drinking Ensure at home. Patient also denies shortness of breath, lung sounds decreased throughout, respirations unlabored. ITS Impressions Abdomen/Pelvis CT 08/30/16 18:48 IMPRESSION: Innumerable pulmonary nodules in the lung bases, concerning for metastatic disease. Innumerable ill-defined hypodense lesions within the liver, concerning for metastatic disease. Ascites, infiltration of the omentum, and nodularity of the peritoneal reflections, concerning for peritoneal carcinomatosis. Indeterminate lesion within the T12 vertebral body, possibly representing a metastatic lesion. Diverticulosis without obvious evidence of diverticulitis. D/ / Bob Garcia MD / Bob Garcia MD Interpreting Provider: Bob Garcia MD Chest X-Ray 08/30/16 18:50 IMPRESSION: Bilateral interstitial infiltrates questioning some interstitial edema. Pneumonia cannot be excluded. D/ / 08/30/2016 19:34:00 Elias Sanchez MD / dain Interpreting Provider: Elias Sanchez MD (2) Hyponatremia Current Visit: Yes Status: Acute Assessment and plan: Nearly resolved, osmolality resolved. Continue IV fluids, will trend. (3) Abnormal urinalysis Current Visit: Yes Status: Acute Assessment and plan: Urinalysis consistent with possible urinary tract infection. Leukocytosis also noted, will initiate ceftriaxone. Urine culture grossly mixed and unable to be interpreted. We will continue antibiotics to complete 5 day course of ceftriaxone- 2 more days (4) Anemia Current Visit: Yes Status: Acute Assessment and plan: Likely secondary to metastatic cancer. Oncology is on board, per their recommendations we will transfuse if her Hb drops below 7. Folate supplementation added. Hemoglobin 6.9 and the patient was transfused 2 units of packed red blood cells. She remains hemodynamically stable again today. (5) Malignancy Current Visit: Yes Status: Acute Assessment and plan: Oncology on board. IR performed a paracentesis with removal of 5500 and dark, purulent brown/red material. Repleted with albumin. Suspect possible primary ovarian primary with metastasis to several locations including possible lungs, liver, spine. (6) Metastatic disease Current Visit: Yes Status: Acute (7) Peritoneal carcinomatosis Current Visit: Yes Status: Acute (8) Anxiety Current Visit: Yes Status: Acute Assessment and plan: Patient was started on lorazepam however she became too drowsy with MS Contin. Lorazepam changed to as needed. She appears much more comfortable and calm today. (9) Counseling regarding advanced care planning and goals of care Current Visit: Yes Status: Acute Assessment and plan: Palliative care is on board. Physical therapy has recommended ECF placement. Patient and family was not ready to discuss CODE STATUS, will continue to slowly broach this topic - Subjective Interval history: Patient seen and examined. On examination, patient sitting up right in bed intermittently falling asleep. Patient appears drowsy and unintelligible speech at times. Throughout our conversation, patient woke up and became more interactive. She was also noted to be writhing in bed stating that her back was hurting. She is still endorsing a lessened appetite and states she did not eat her breakfast. - Constitutional Vitals: Temp Pulse Resp BP Pulse Ox 97.6 F 91 12 103/59 98 09/03/16 07:47 09/03/16 07:47 09/03/16 07:47 09/03/16 07:47 09/03/16 07:47 General appearance: Present: cachectic, disheveled, A&O X 3, pleasant, no acute distress, loss of weight, answers questions appropriately - Head Head exam: Present: atraumatic, normocephalic - Eye Eye exam: Present: PERRL, conjuntiva pink, sclera anicteric Pupils: Present: PERRL - Neck Neck exam general surgery: Present: supple, trachea midline. Absent: lymphadenopathy - Respiratory Respiratory exam: Present: accessory muscle use, chest wall tenderness, decreased breath sounds, prolonged expiratory phase, wheezes. Absent: rales, respiratory distress, rhonchi - Cardiovascular Cardiovascular exam: Present: RRR, +S1, +S2, tachycardia. Absent: diastolic murmur, gallop, rubs, systolic murmur - GI/Abdominal GI/Abdominal exam: Present: normal bowel sounds, soft, tenderness (diffuse), no peritoneal signs. Absent: distended - Extremities Exam Extremities exam: Present: warm, radial pulses palpable and symetrical. Absent : calf tenderness, cyanotic, pedal edema - Neurological Exam Neurological exam: Present: alert, altered (drowsy), CN II-XII intact, oriented X3, no focal deficits, strengths equal and symetr throughout. Absent: pronater drift, facial droop, speech deficit - Skin Skin exam: Present: dry, intact, pallor (and jaundiced), warm Internal Medicine: Result - Labs CBC & Chem 7: 09/03/16 03:55 09/03/16 03:55 Labs: Short CBC 09/03/16 Range/Units 03:55 WBC 12.2 H (4.3-11.1) K/mcL Hgb 9.7 L (11.5-15.4) g/dL Hct 28.2 L (35.3-44.9) % Plt Count 188 (140-400) K/mcL Neutrophils # 9.1 H (1.6-8.9) K/mcL BMP 09/03/16 03:55 Sodium 135 L Potassium 4.4 Chloride 109 Carbon Dioxide 20 BUN 21 H Creatinine 0.81 Glucose 114 H Calcium 8.3 L - ABG Interpretation ABG results: PT/INR, D-dimer PT 16.0 Seconds (9.4-12.1) H 08/30/16 19:53 Consult Discharge Plan - Plan Referrals: NO,PCP [Primary Care Provider] -
--- NOTE | 2016-09-03 11:15 | Palliative Progress Note ---
Date of Encounter: 09/03/16 Time of Encounter: 11:10 - Assessment and plan (1) Abdominal pain Current Visit: Yes Status: Acute Assessment and plan: Continue with low dose MS Soy. She remains drowsy, however, awakens easily and still in some discomfort with movement. Oxycodone for breakthrough, which she has not utilized. I reminded her this is available and to use if needed. Qualifiers: Abdominal location: generalized Qualified Code(s): R10.84 - Generalized abdominal pain (2) Nausea Current Visit: Yes Status: Acute Assessment and plan: Continue Antiemetic PRN. (3) Counseling regarding advanced care planning and goals of care Current Visit: Yes Status: Acute Assessment and plan: Long discussion with daughter, Seble, ALISSON as pt increasingly more somnolent and confused. Seble still would like f/u visit with oncology next , she realizes that her mother has become weaker even while here at the hospital, and she may not be in strong enough physical condition to tolerate cancer treatment. Discussed that at this point, we could go ahead and enroll in hospice to get Seble a support structure in place at home, as she refuses to place at [facility]. If she improves and desires cancer treatment, she could revocate from hospice. Seble verbalized understanding. She expressed that she is very overwhelmed and at this point, no family members have offered to assist with care. SW offered to meet with other family members if they come in to discuss. Daughter got to the point, she was unable to discuss any further and excused herself. Told her we would follow up tomorrow on discharge arrangements. Discussed code status at length. Seble selected to transition to DNR[facility]. (4) Peritoneal carcinomatosis Current Visit: Yes Status: Acute (5) Metastatic disease Current Visit: Yes Status: Acute (6) Anemia Current Visit: Yes Status: Acute Qualifiers: Anemia type: folate deficiency Folate deficiency anemia type: dietary Qualified Code(s): D52.0 - Dietary folate deficiency anemia (7) Constipation Current Visit: Yes Status: Acute Assessment and plan: No BM since admission - will d/c Colace and change to Senokot -S bid and monitor - Time Spent With Patient Total time spent is greater than 50% in coordination of care (as documented) at patient's floor/unit and/or counseling patient: Greater than 35 minutes - Subjective Interval history: Patient sleeping on my arrival - awakens easily when name called. Irritated and asking for ice that "nobody will get me". Asking when she can go home. Still with grimacing when she tries to move in bed. More confused and Appears more jaundiced. Poor appetite, desires mostly ice chips and po fluids. - Constitutional Vitals: Abnormal lab results WBC 12.2 K/mcL (4.3-11.1) H 09/03/16 03:55 RBC 2.72 M/mcL (3.82-4.97) L 09/03/16 03:55 Hgb 9.7 g/dL (11.5-15.4) L 09/03/16 03:55 Hct 28.2 % (35.3-44.9) L 09/03/16 03:55 MCV 103.7 fL (83.0-100.0) H 09/03/16 03:55 MCH 35.7 pg (28.0-33.3) H 09/03/16 03:55 RDW 22.6 % (11.5-14.5) H 09/03/16 03:55 Neutrophils # 9.1 K/mcL (1.6-8.9) H 09/03/16 03:55 Nucleated RBCs/100 WBC 0.2 /100 WBC (0) H 09/02/16 05:27 Large Platelets Present (Not Present) A 09/02/16 05:27 Polychromasia 2+ (Not Present) A 09/02/16 05:27 Anisocytosis 2+ (Not Present) A 09/02/16 05:27 Macrocytosis Present (Not Present) A 09/02/16 05:27 PT 16.0 Seconds (9.4-12.1) H 08/30/16 19:53 Sodium 135 mEq/L (136-145) L 09/03/16 03:55 BUN 21 mg/dL (7-20) H 09/03/16 03:55 Glucose 114 mg/dL (70-99) H 09/03/16 03:55 Lactic Acid 2.3 mmol/L (0.5-2.2) H 08/30/16 19:53 Calcium 8.3 mg/dL (8.6-10.8) L 09/03/16 03:55 Iron 30 mcg/dL (50-170) L 08/30/16 19:53 Transferrin 129 mg/dL (180-382) L 08/30/16 19:53 Ferritin 1906 ng/ml (5-204) H 08/30/16 19:53 Total Bilirubin 6.7 mg/dL (0.2-1.2) H 08/30/16 19:53 Direct Bilirubin 4.9 mg/dL (0.0-0.5) H 08/30/16 19:53 Indirect Bilirubin 1.8 mg/dL (0.0-1.2) H 08/30/16 19:53 AST 193 Units/L (5-34) H 08/30/16 19:53 Alkaline Phosphatase 657 Units/L (38-126) H 08/30/16 19:53 Serum Total Protein 5.9 g/dL (6.0-8.3) L 08/30/16 19:53 Albumin 1.8 g/dL (3.5-5.0) L 08/31/16 14:47 Globulin 3.9 g/dL (2.4-3.5) H 08/30/16 19:53 Albumin/Globulin Ratio 0.5 (1.1-2.2) L 08/30/16 19:53 CA 19-9 Antigen 252 U/mL (0-37) H 08/30/16 23:03 CA 125 Ag Serial Mntr 1289 U/mL (0-35) H 08/30/16 19:53 Vitamin B12 > 2000 pg/mL (213-816) H 08/30/16 19:53 Folate 3.2 ng/mL (7.0-31.4) L 08/30/16 19:53 Urine Color [place] (Yellow) A 08/31/16 06:02 Urine Clarity Cloudy (Clear) A 08/31/16 06:02 Urine Blood Trace (Negative) H 08/31/16 06:02 Urine Bilirubin Moderate (Negative) H 08/31/16 06:02 Ur Leukocyte Esterase Small (Negative) H 08/31/16 06:02 Urine Microscopic RBC 3-5 per hpf (0-3) H 08/31/16 06:02 Urine Microscopic WBC 5-15 per hpf (0-3) H 08/31/16 06:02 Ur Squamous Epith Cells Many per lpf (None-Few) H 08/31/16 06:02 Ur Culture Indicated? YES (NO) A 08/31/16 06:02 Peritoneal RBC 0.035 M/mcL (0.000-0.002) H 08/31/16 14:25 General appearance: Present: no acute distress - Respiratory Respiratory exam: Present: decreased breath sounds, CTAB - Cardiovascular Cardiovascular exam: Present: +S1, +S2 - GI/Abdominal GI/Abdominal exam: Present: distended, hypoactive bowel sounds - Additional comments: Urine dk galo - Extremities Exam Additional comments: Lower extremities with 2+ edema - Neurological Exam Neurological exam: Present: alert Additional comments: Oriented to name and place. Inappropriate statements at times. Becoming irritated with questioning today. - Psychiatric Psychiatric exam: Present: flat affect - Skin Skin exam: Present: dry, warm Palliative Quality Palliative Quality: Screen for Code Status: Yes, Screen for Goals of Care: Yes, Screen for Pain: Yes, If Pain Regimen Started, Initiate Bowel Regimen: Yes, Screen for Nausea/Vomitting: Yes - Labs CBC & Chem 7: 09/03/16 03:55 09/03/16 03:55 Labs: Laboratory Results - last 24 hr 09/03/16 09/03/16 03:55 03:55 WBC 12.2 H RBC 2.72 L Hgb 9.7 L Hct 28.2 L MCV 103.7 H MCH 35.7 H MCHC 34.4 RDW 22.6 H Plt Count 188 MPV 9.7 Immature Gran % 1.6 Seg Neutrophils % 74.6 Lymphocytes % 12.8 Monocytes % 8.0 Eosinophils % 2.2 Basophils % 0.8 Neutrophils # 9.1 H Lymphocytes # 1.6 Monocytes # 1.0 Eosinophils # 0.3 Basophils # 0.1 Sodium 135 L Potassium 4.4 Chloride 109 Carbon Dioxide 20 BUN 21 H Creatinine 0.81 Est GFR ( Amer) > 60 Est GFR (Non-Af Amer) > 60 BUN/Creatinine Ratio 26 Glucose 114 H Calculated Osmolality 284 Calcium 8.3 L - ABG Interpretation ABG results: PT/INR, D-dimer PT 16.0 Seconds (9.4-12.1) H 08/30/16 19:53 Consult Discharge Plan - Plan Referrals: NO,PCP [Primary Care Provider] -
[2016-09-03] MEDS: Sennosides/Docusate Sodium TABLET PO SCH (20:41)
[2016-09-04 04:21] LABS: BUN/Creatinine Ratio 29 (6-26); Basophils # 0.1 K/mcL (0.0-0.2); Basophils % 0.6 %; Blood Urea Nitrogen 23 mg/dL (7-20); Calcium 8.5 mg/dL (8.6-10.8); Carbon Dioxide 19 mEq/L (19-29); Chloride 112 mEq/L (98-109); Eosinophils # 0.2 K/mcL (0.0-0.6); Eosinophils % 1.8 %; Glucose 91 mg/dL (70-99); Hematocrit 29.5 % (35.3-44.9); Hemoglobin 10.1 g/dL (11.5-15.4); Immature Granulocytes % 1.5 % (0-4); Lymphocytes # 1.1 K/mcL (0.6-4.6); Lymphocytes % 9.1 %; Mean Corpuscular HGB Conc 34.2 g/dL (31.6-35.5); Mean Corpuscular Hemoglobin 35.7 pg (28.0-33.3); Mean Corpuscular Volume 104.2 fL (83.0-100.0); Mean Platelet Volume 9.5 fL (9.4-12.4); Monocytes % 7.7 %; Neutrophils # 9.9 K/mcL (1.6-8.9); Osmolality,Calculated 287 (280-300); Platelet Count 225 K/mcL (140-400); Potassium 4.5 mEq/L (3.5-4.5); Red Blood Count 2.83 M/mcL (3.82-4.97); Red Cell Distribution Width 22.4 % (11.5-14.5); Segmented Neutrophils % 79.3 %; eGFR For African Americans > 60 (> 60); eGFR For Non-African Americans > 60 (> 60)
[2016-09-04 04:31] LABS: Sodium 137 mEq/L (136-145)
[2016-09-04] MEDS: Pantoprazole 40 MG VIAL IVP SCH ×2 (05:03→17:14)
[2016-09-04] MEDS: *HR* Morphine Sulfate SR (12 HR) 15 MG TABLET.ER PO SCH (05:06)
[2016-09-04] MEDS: 0.9 % Sodium Chloride 1,000 ML IVC SCH (08:59)
[2016-09-04] MEDS: Sennosides/Docusate Sodium TABLET PO SCH ×2 (09:00→21:11)
[2016-09-04] MEDS: *HR* OxyCODONE Immed Rel 5 MG TABLET PO PRN ×2 (09:00→14:02)
[2016-09-04] MEDS: *HR* Enoxaparin 30 MG/0.3 ML SYRINGE SQ SCH ×2 (09:00→21:01)
[2016-09-04] MEDS: *HR* LORazepam 0.5 MG TABLET PO PRN (09:06)
--- NOTE | 2016-09-04 10:00 | Oncology Inp Progress Note ---
Date of Encounter: 09/04/16 Time of Encounter: 07:00 Oncology: Subj Interval history: Patient seen and examined at bedside. Chart reviewed for interval details and appreciate ongoing care hospital team. Pathology from ascitic fluid that is returned showing reactive findings with no evidence of malignancy. Waleska is doing very poorly today and is very lethargic. She is able to have a conversation with me but with very limited involvement. I discussed findings from recent biopsy and informed her that despite negative ascitic fluid study, overall clinical picture is still compatible with metastatic ovarian cancer. We discussed options including obtaining additional biopsies from lung or liver for confirmation. We also discussed comfort directive measures such as palliative care/hospice. She appears overwhelmed with information and is unable to decide at this time regarding treatment direction. I encouraged her to have a discussion with her daughter with whom I spoke previously regarding diagnostic considerations. Otherwise, her organ function appears to be holding relatively steady. Review of systems: 12 point review of systems as noted above.All other systems are negative: Physical exam: Vital Signs Temp 98.7 F 09/04/16 06:56 Pulse 86 09/04/16 06:56 Resp 17 09/04/16 06:56 BP 98/75 09/04/16 06:56 Pulse Ox 93 L 09/04/16 09:15 GENERAL: Markedly lethargic appearing. Mental Status: Affect appropriate for circumstances Skin: No rashes or petechiae. No evidence of skin malignancy Extremities: No edema. No calf swelling or tenderness. No joint deformity. Neurologic: Global weakness but no focal sensorimotor abnormalities. Results: Laboratory Last Values WBC 12.5 K/mcL (4.3-11.1) H 09/04/16 03:33 RBC 2.83 M/mcL (3.82-4.97) L 09/04/16 03:33 Hgb 10.1 g/dL (11.5-15.4) L 09/04/16 03:33 Hct 29.5 % (35.3-44.9) L 09/04/16 03:33 MCV 104.2 fL (83.0-100.0) H 09/04/16 03:33 MCH 35.7 pg (28.0-33.3) H 09/04/16 03:33 MCHC 34.2 g/dL (31.6-35.5) 09/04/16 03:33 RDW 22.4 % (11.5-14.5) H 09/04/16 03:33 Plt Count 225 K/mcL (140-400) 09/04/16 03:33 MPV 9.5 fL (9.4-12.4) 09/04/16 03:33 Immature Gran % 1.5 % (0-4) 09/04/16 03:33 Seg Neutrophils % 79.3 % 09/04/16 03:33 Lymphocytes % 9.1 % 09/04/16 03:33 Monocytes % 7.7 % 09/04/16 03:33 Eosinophils % 1.8 % 09/04/16 03:33 Basophils % 0.6 % 09/04/16 03:33 Neutrophils # 9.9 K/mcL (1.6-8.9) H 09/04/16 03:33 Lymphocytes # 1.1 K/mcL (0.6-4.6) 09/04/16 03:33 Monocytes # 1.0 K/mcL (0.0-1.3) 09/04/16 03:33 Eosinophils # 0.2 K/mcL (0.0-0.6) 09/04/16 03:33 Basophils # 0.1 K/mcL (0.0-0.2) 09/04/16 03:33 Nucleated RBCs/100 WBC 0.2 /100 WBC (0) H 09/02/16 05:27 Platelet Estimate Normal (Normal) 09/02/16 05:27 Large Platelets Present (Not Present) A 09/02/16 05:27 Immature Plt Fraction 3.6 % (1.1-6.1) 08/30/16 19:53 Polychromasia 2+ (Not Present) A 09/02/16 05:27 Anisocytosis 2+ (Not Present) A 09/02/16 05:27 Macrocytosis Present (Not Present) A 09/02/16 05:27 PT 16.0 Seconds (9.4-12.1) H 08/30/16 19:53 INR 1.5 08/30/16 19:53 Sodium 137 mEq/L (136-145) 09/04/16 03:33 Potassium 4.5 mEq/L (3.5-4.5) 09/04/16 03:33 Chloride 112 mEq/L (98-109) H 09/04/16 03:33 Carbon Dioxide 19 mEq/L (19-29) 09/04/16 03:33 BUN 23 mg/dL (7-20) H 09/04/16 03:33 Creatinine 0.78 mg/dL (0.57-1.11) 09/04/16 03:33 Est GFR ( Amer) > 60 (> 60) 09/04/16 03:33 Est GFR (Non-Af Amer) > 60 (> 60) 09/04/16 03:33 BUN/Creatinine Ratio 29 (6-26) H 09/04/16 03:33 Glucose 91 mg/dL (70-99) 09/04/16 03:33 Calculated Osmolality 287 (280-300) 09/04/16 03:33 Lactic Acid 2.3 mmol/L (0.5-2.2) H 08/30/16 19:53 Calcium 8.5 mg/dL (8.6-10.8) L 09/04/16 03:33 Iron 30 mcg/dL (50-170) L 08/30/16 19:53 % Saturation 17 % (15-50) 08/30/16 19:53 Transferrin 129 mg/dL (180-382) L 08/30/16 19:53 Ferritin 1906 ng/ml (5-204) H 08/30/16 19:53 Total Bilirubin 6.7 mg/dL (0.2-1.2) H 08/30/16 19:53 Direct Bilirubin 4.9 mg/dL (0.0-0.5) H 08/30/16 19:53 Indirect Bilirubin 1.8 mg/dL (0.0-1.2) H 08/30/16 19:53 AST 193 Units/L (5-34) H 08/30/16 19:53 ALT 46 Units/L (0-55) 08/30/16 19:53 Alkaline Phosphatase 657 Units/L (38-126) H 08/30/16 19:53 Troponin I 0.00 ng/mL (0-0.03) 08/30/16 19:53 Serum Total Protein 5.9 g/dL (6.0-8.3) L 08/30/16 19:53 Albumin 1.8 g/dL (3.5-5.0) L 08/31/16 14:47 Globulin 3.9 g/dL (2.4-3.5) H 08/30/16 19:53 Albumin/Globulin Ratio 0.5 (1.1-2.2) L 08/30/16 19:53 Lipase 34 Units/L (8-78) 08/30/16 19:53 Tumor Marker AFP 3 ng/mL (0-9) 08/30/16 23:03 Carcinoembryonic Ag 3.8 ng/mL (0-5.0) 08/30/16 19:53 CA 15-3 Antigen 24 U/mL (0-31) 08/30/16 23:03 CA 19-9 Antigen 252 U/mL (0-37) H 08/30/16 23:03 CA 125 Ag Serial Mntr 1289 U/mL (0-35) H 08/30/16 19:53 Vitamin B12 > 2000 pg/mL (213-816) H 08/30/16 19:53 Folate 3.2 ng/mL (7.0-31.4) L 08/30/16 19:53 TSH 3.999 mcIU/mL (0.350-4.840) 08/30/16 19:53 Urine Color [place] (Yellow) A 08/31/16 06:02 Urine Clarity Cloudy (Clear) A 08/31/16 06:02 Urine pH 5.5 pH Units (5.0-8.0) 08/31/16 06:02 Ur Specific [place] 1.020 (1.010-1.025) 08/31/16 06:02 Urine Protein Trace mg/dL (Neg-Trace) 08/31/16 06:02 Urine Glucose (UA) Normal mg/dL (Normal) 08/31/16 06:02 Urine Ketones Negative mg/dL (Negative) 08/31/16 06:02 Urine Blood Trace (Negative) H 08/31/16 06:02 Urine Nitrite Negative (Negative) 08/31/16 06:02 Urine Bilirubin Moderate (Negative) H 08/31/16 06:02 Urine Urobilinogen Normal mg/dL (Normal) 08/31/16 06:02 Ur Leukocyte Esterase Small (Negative) H 08/31/16 06:02 Urine Microscopic RBC 3-5 per hpf (0-3) H 08/31/16 06:02 Urine Microscopic WBC 5-15 per hpf (0-3) H 08/31/16 06:02 Ur Squamous Epith Cells Many per lpf (None-Few) H 08/31/16 06:02 Urine Bacteria None Seen per hpf (None-Few) 08/31/16 06:02 Hyaline Casts None Seen per lpf (None-Few) 08/31/16 06:02 Ur Culture Indicated? YES (NO) A 08/31/16 06:02 Fluid Cholesterol 16 mg/dL (No Ref Range) 08/31/16 14:25 Peritoneal Appearance BLOODY (Clear) 08/31/16 14:25 Peritoneal Volume 60.0 mL 08/31/16 14:25 Peritoneal pH 7.52 pH Units (No Ref Range) 08/31/16 14:25 Peritoneal RBC 0.035 M/mcL (0.000-0.002) H 08/31/16 14:25 Periton Tot Nuc Cells 161 TNC/mcL (0-300) 08/31/16 14:25 Periton Neutrophils 56.0 % 08/31/16 14:25 Periton Band Neuts Test Not Performed 08/31/16 14:25 Peritoneal Eosinophils Test Not Performed 08/31/16 14:25 Peritoneal Basophils Test Not Performed 08/31/16 14:25 Periton Lymphocytes % 42.0 % 08/31/16 14:25 Periton Monocytes % Test Not Performed 08/31/16 14:25 Periton Other Cells % 2.0 % 08/31/16 14:25 Peritoneal Tot Protein 1.0 g/dL (No Ref Range) 08/31/16 14:25 Peritoneal Albumin 0.5 g/dL (No Ref Range) 08/31/16 14:25 Peritoneal LDH 108 Units/L (No Ref Range) 08/31/16 14:25 Peritoneal Glucose 147 mg/dL (No Ref Range) 08/31/16 14:25 Peritoneal Amylase 15 Units/L (No Ref Range) 08/31/16 14:25 Peritoneal Cholesterol 16 mg/dL (No Ref Range) 08/31/16 14:25 Blood Type B POSITIVE 08/30/16 20:59 Antibody Screen NEGATIVE 08/30/16 20:59 Crossmatch See Detail 08/30/16 20:59 Radiographic studies: Impression/recommendations: Suspected metastatic cancer unknown primary site: Tumor marker CEA 125 markedly elevated. Abdominal imaging shows diffuse, bibasal pulmonary nodules, large volume ascites , diffuse peritoneal nodularity, diffuse liver lesions. I informed the patient that despite negative fluids studies, oral pictures clinically consistent with disseminated malignancy from an ovarian primary which is essentially an incurable malignancy. We can go ahead and obtain additional biopsies from liver or lung lesions for confirmation but given her poor general health and performance status, I'm not sure that she is an appropriate candidate for aggressive treatment approach at this point and consideration for hospice/palliative case only reasonable. Tissue diagnosis of ovarian cancer in her may be a basis for genetic testing which will benefit both her and family members regarding risk for familial/ hereditary cancer syndrome. Additionally, if she is found to have a BRCA mutation positive cancer, she will be an appropriate candidate for oral PARP inhibitor. Appreciate input from palliative care team/hospice. I agree with ongoing discussion with patient and family regarding need to consider overall treatment goals.. Anemia: Improved We'll follow the patient along side you during this hospitalization but please do not hesitate to call regarding interval hematologic questions as they arise. Thank you for your excellent ongoing care for allowing us to see her while in- house. This report was created using voice recognition software and may contain errors. It was signed but not edited to expedite communication. - Constitutional Vitals: Vital Signs Temp Pulse Resp BP Pulse Ox 09/04/16 09:15 93 L 09/04/16 06:56 98.7 F 86 17 98/75 93 L 09/04/16 04:07 98.5 F 103 18 96/56 97 09/04/16 00:00 98.2 F 86 20 97/52 96 09/03/16 21:00 98 09/03/16 19:32 98.1 F 97 18 97/58 94 L 09/03/16 17:06 97.9 F 99 12 104/56 100 09/03/16 12:00 97.3 F L 97 12 100/58 97 Intake and Output 09/04/16 09/04/16 09/04/16 00:59 08:59 16:59 Intake Total 189 / 189 1000 / 1000 Output Total 275 / 275 200 / 200 Balance -86 / -86 800 / 800 Intake: IV Fluids 189 / 189 1000 / 1000 0.9 % Sodium Chloride 1, 189 / 189 1000 / 1000 000 ML @ 75 mls/hr IVC . [id number] [facility] Rx#: [id number] Oral 0 / 0 Output: Catheter 275 / 275 200 / 200 Other: Weight 52.2 kg Patient Weight 09/05/16 00:59 Weight 52.2 kg Oncology: Obj Data - Labs CBC & Chem 7: 09/04/16 03:33 09/04/16 03:33 Labs: Laboratory Results - last 24 hr 09/04/16 09/04/16 03:33 03:33 WBC 12.5 H RBC 2.83 L Hgb 10.1 L Hct 29.5 L MCV 104.2 H MCH 35.7 H MCHC 34.2 RDW 22.4 H Plt Count 225 MPV 9.5 Immature Gran % 1.5 Seg Neutrophils % 79.3 Lymphocytes % 9.1 Monocytes % 7.7 Eosinophils % 1.8 Basophils % 0.6 Neutrophils # 9.9 H Lymphocytes # 1.1 Monocytes # 1.0 Eosinophils # 0.2 Basophils # 0.1 Sodium 137 Potassium 4.5 Chloride 112 H Carbon Dioxide 19 BUN 23 H Creatinine 0.78 Est GFR ( Amer) > 60 Est GFR (Non-Af Amer) > 60 BUN/Creatinine Ratio 29 H Glucose 91 Calculated Osmolality 287 Calcium 8.5 L - ABG Interpretation ABG results: PT/INR, D-dimer PT 16.0 Seconds (9.4-12.1) H 08/30/16 19:53 Consult Discharge Plan - Plan Referrals: NO,PCP [Primary Care Provider] -
[2016-09-04] MEDS ORDERED: *HR* Morphine Sulfate SR (12 HR) 15 MG TABLET.ER PO ONE (10:45)
--- NOTE | 2016-09-04 11:27 | Palliative Progress Note ---
Date of Encounter: 09/04/16 Time of Encounter: 10:30 - Assessment and plan (1) Abdominal pain Current Visit: Yes Status: Acute Assessment and plan: Patient missed am dose of MS Contin - primary nurse states that night nurse thought pt too sleepy. Spoke with pharmacy and they will reschedule and place on 10-2200 schedule. Continue to utilize Oxycodone for breakthrough. Received one dose this am. Qualifiers: Abdominal location: generalized Qualified Code(s): R10.84 - Generalized abdominal pain (2) Agitation Current Visit: Yes Status: Acute Assessment and plan: Patient with increasing restlessness and agitation, appears delirious at times. Will begin low dose Haldol and monitor (3) Anxiety Current Visit: Yes Status: Acute Assessment and plan: Continue PRN Ativan. Received x1 last 24 hours. (4) Nausea Current Visit: Yes Status: Acute Assessment and plan: Continue Antiemetics PRN. (5) Counseling regarding advanced care planning and goals of care Current Visit: Yes Status: Acute Assessment and plan: D/W David Nunez CNP Oncology. Ascitic fluid + Mesothelial cells. She has done poorly since admission, increased agitation and confusion, increased jaundice, very little po intake and weakness. Daughter agreeable to enroll in [facility] on discharge. Will f/u next week with oncology and see pt condition and if they desire to pursue any other course. (6) Peritoneal carcinomatosis Current Visit: Yes Status: Acute (7) Metastatic disease Current Visit: Yes Status: Acute (8) Anemia Current Visit: Yes Status: Acute Qualifiers: Anemia type: folate deficiency Folate deficiency anemia type: dietary Qualified Code(s): D52.0 - Dietary folate deficiency anemia (9) Constipation Current Visit: Yes Status: Acute - Time Spent With Patient Total time spent is greater than 50% in coordination of care (as documented) at patient's floor/unit and/or counseling patient: - Subjective Interval history: Patient awake and agitated on my arrival. Refusing to answer most questions, restless. Primary nurse states she did not get 6am dose of MS Contin. She has recently had breakthrough pain medication and Ativan. Becomes angry when I ask about pain as well. Daughter entered room and pt yelling at her for not being here. Explained to pt that we are trying to get things set up for discharge possibly tomorrow. - Constitutional Vitals: Abnormal lab results WBC 12.5 K/mcL (4.3-11.1) H 09/04/16 03:33 RBC 2.83 M/mcL (3.82-4.97) L 09/04/16 03:33 Hgb 10.1 g/dL (11.5-15.4) L 09/04/16 03:33 Hct 29.5 % (35.3-44.9) L 09/04/16 03:33 MCV 104.2 fL (83.0-100.0) H 09/04/16 03:33 MCH 35.7 pg (28.0-33.3) H 09/04/16 03:33 RDW 22.4 % (11.5-14.5) H 09/04/16 03:33 Neutrophils # 9.9 K/mcL (1.6-8.9) H 09/04/16 03:33 Nucleated RBCs/100 WBC 0.2 /100 WBC (0) H 09/02/16 05:27 Large Platelets Present (Not Present) A 09/02/16 05:27 Polychromasia 2+ (Not Present) A 09/02/16 05:27 Anisocytosis 2+ (Not Present) A 09/02/16 05:27 Macrocytosis Present (Not Present) A 09/02/16 05:27 PT 16.0 Seconds (9.4-12.1) H 08/30/16 19:53 Chloride 112 mEq/L (98-109) H 09/04/16 03:33 BUN 23 mg/dL (7-20) H 09/04/16 03:33 BUN/Creatinine Ratio 29 (6-26) H 09/04/16 03:33 Lactic Acid 2.3 mmol/L (0.5-2.2) H 08/30/16 19:53 Calcium 8.5 mg/dL (8.6-10.8) L 09/04/16 03:33 Iron 30 mcg/dL (50-170) L 08/30/16 19:53 Transferrin 129 mg/dL (180-382) L 08/30/16 19:53 Ferritin 1906 ng/ml (5-204) H 08/30/16 19:53 Total Bilirubin 6.7 mg/dL (0.2-1.2) H 08/30/16 19:53 Direct Bilirubin 4.9 mg/dL (0.0-0.5) H 08/30/16 19:53 Indirect Bilirubin 1.8 mg/dL (0.0-1.2) H 08/30/16 19:53 AST 193 Units/L (5-34) H 08/30/16 19:53 Alkaline Phosphatase 657 Units/L (38-126) H 08/30/16 19:53 Serum Total Protein 5.9 g/dL (6.0-8.3) L 08/30/16 19:53 Albumin 1.8 g/dL (3.5-5.0) L 08/31/16 14:47 Globulin 3.9 g/dL (2.4-3.5) H 08/30/16 19:53 Albumin/Globulin Ratio 0.5 (1.1-2.2) L 08/30/16 19:53 CA 19-9 Antigen 252 U/mL (0-37) H 08/30/16 23:03 CA 125 Ag Serial Mntr 1289 U/mL (0-35) H 08/30/16 19:53 Vitamin B12 > 2000 pg/mL (213-816) H 08/30/16 19:53 Folate 3.2 ng/mL (7.0-31.4) L 08/30/16 19:53 Urine Color [place] (Yellow) A 08/31/16 06:02 Urine Clarity Cloudy (Clear) A 08/31/16 06:02 Urine Blood Trace (Negative) H 08/31/16 06:02 Urine Bilirubin Moderate (Negative) H 08/31/16 06:02 Ur Leukocyte Esterase Small (Negative) H 08/31/16 06:02 Urine Microscopic RBC 3-5 per hpf (0-3) H 08/31/16 06:02 Urine Microscopic WBC 5-15 per hpf (0-3) H 08/31/16 06:02 Ur Squamous Epith Cells Many per lpf (None-Few) H 08/31/16 06:02 Ur Culture Indicated? YES (NO) A 08/31/16 06:02 Peritoneal RBC 0.035 M/mcL (0.000-0.002) H 08/31/16 14:25 - Expanded Respiratory Exam Location: rales: Left, Right, Lower - Cardiovascular Cardiovascular exam: Present: +S1, +S2 - GI/Abdominal GI/Abdominal exam: Present: distended, hypoactive bowel sounds, soft - Additional comments: Skinner with dk galo urine - Extremities Exam Additional comments: 2-3+ edema bilateral extremities - Neurological Exam Neurological exam: Present: alert Additional comments: Patient agitated and refusing to follow most commands. CHAUDHRY. - Skin Skin exam: Present: dry, warm Additional comments: Jaundiced Palliative Quality Palliative Quality: Screen for Code Status: Yes, Screen for Goals of Care: Yes, Screen for Pain: Yes, If Pain Regimen Started, Initiate Bowel Regimen: Yes, Screen for Nausea/Vomitting: Yes Code Status: 09/03/16 16:26 DNR [Resuscitation Status: Active] [RES] Routine Comment: Resuscitation Status: DNR-Comfort Care - Labs CBC & Chem 7: 09/04/16 03:33 09/04/16 03:33 Labs: Laboratory Results - last 24 hr 09/04/16 09/04/16 03:33 03:33 WBC 12.5 H RBC 2.83 L Hgb 10.1 L Hct 29.5 L MCV 104.2 H MCH 35.7 H MCHC 34.2 RDW 22.4 H Plt Count 225 MPV 9.5 Immature Gran % 1.5 Seg Neutrophils % 79.3 Lymphocytes % 9.1 Monocytes % 7.7 Eosinophils % 1.8 Basophils % 0.6 Neutrophils # 9.9 H Lymphocytes # 1.1 Monocytes # 1.0 Eosinophils # 0.2 Basophils # 0.1 Sodium 137 Potassium 4.5 Chloride 112 H Carbon Dioxide 19 BUN 23 H Creatinine 0.78 Est GFR ( Amer) > 60 Est GFR (Non-Af Amer) > 60 BUN/Creatinine Ratio 29 H Glucose 91 Calculated Osmolality 287 Calcium 8.5 L - ABG Interpretation ABG results: PT/INR, D-dimer PT 16.0 Seconds (9.4-12.1) H 08/30/16 19:53 Consult Discharge Plan - Plan Referrals: NO,PCP [Primary Care Provider] -
[2016-09-04] MEDS: Haloperidol Lactate 5 MG/ML VIAL IV SCH ×2 (11:38→17:14)
--- NOTE | 2016-09-04 16:55 | Internal Med Progress Note ---
Date of Encounter: 09/04/16 Time of Encounter: 14:30 - Assessment and plan (1) Abdominal pain Current Visit: Yes Status: Acute Assessment and plan: Patient has really decompensated over the last several days. She is now alert and sitting upright but is unable to answer questions and really the only thing that she will state is to be left alone. She is still writhing in bed and seems to be unable to get comfortable. Continue with pain and nausea management. Palliative care is on board, plan is for patient to go home with hospice tomorrow. Abdomen remains distended and diffusely tender, will initiate lactulose for suspected elevated ammonia levels and constipation. 09/03/16 Patient appears much more comfortable however quite drowsy this morning. She complains of back pain and continues to rise and pain. She states she does not have an appetite. Patient prior to admission was smoking marijuana every day so I discussed with her initiation of Marinol and she stated she would like to try it to see if it would help stimulate her appetite and help control her pain. Palliative and oncology remain on board. Biopsies pending. 09/02/16 Patient has been started on scheduled MS Contin twice a day per palliative. She appears much more comfortable. She is able to lay still while conversing whereas the first 2 days if her admission, she would drive and not be able to get comfortable in bed. We will continue pain management. Biopsies pending, oncology also on board. 09/01/16 Patient stating her pain is better controlled however she is restless and fidgeting on examination and unable to get comfortable. Patient readily admits that she takes care of everybody else besides herself. She states she would never ask for any extra medication from anybody including nurses. She was encouraged greatly to use the medication as needed. We will change her over to MS Contin and schedule a twice a day. Will also add some lorazepam scheduled as the patient stating she is very anxious. She does not want the rest of her family to know about her diagnosis. She states that she would like to handle this on her own. Palliative care is on board as well as oncology. 08/31/16 On examination, patient is restless and irritable. She states she cannot get comfortable. Her answers are very baudilio and she gets annoyed when asked more than one question. I strongly suspect the patient has uncontrolled pain and I brought this up with the patient. She would be amenable to scheduled pain medication to assess her response. She certainly has several sources of possible pain. Imaging consistent with likely new diagnosis of ovarian cancer with several metastatic areas including lungs, liver, possible T12 lesion. Oncology and palliative care are on board. Paracentesis later today per IR. Nutrition also on board. We will initiate Ensure. Patient endorsing a very decreased appetite. She states that she had been drinking Ensure at home. Patient also denies shortness of breath, lung sounds decreased throughout, respirations unlabored. ITS Impressions Abdomen/Pelvis CT 08/30/16 18:48 IMPRESSION: Innumerable pulmonary nodules in the lung bases, concerning for metastatic disease. Innumerable ill-defined hypodense lesions within the liver, concerning for metastatic disease. Ascites, infiltration of the omentum, and nodularity of the peritoneal reflections, concerning for peritoneal carcinomatosis. Indeterminate lesion within the T12 vertebral body, possibly representing a metastatic lesion. Diverticulosis without obvious evidence of diverticulitis. D/ / Bob Garcia MD / Bob Garcia MD Interpreting Provider: Bob Garcia MD Chest X-Ray 08/30/16 18:50 IMPRESSION: Bilateral interstitial infiltrates questioning some interstitial edema. Pneumonia cannot be excluded. D/ / 08/30/2016 19:34:00 Elias Sanchez MD / dain Interpreting Provider: Elias Sanchez MD (2) Hyponatremia Current Visit: Yes Status: Resolved (3) Abnormal urinalysis Current Visit: Yes Status: Acute Assessment and plan: Urinalysis consistent with possible urinary tract infection. Leukocytosis also noted, will initiate ceftriaxone. Urine culture grossly mixed and unable to be interpreted. We will continue antibiotics to complete 5 day course of ceftriaxone- and today was her last day (4) Anemia Current Visit: Yes Status: Acute Assessment and plan: Likely secondary to metastatic cancer. Oncology is on board, per their recommendations we will transfuse if her Hb drops below 7. Folate supplementation added. Hemoglobin 6.9 and the patient was transfused 2 units of packed red blood cells. She remains hemodynamically stable again today. (5) Malignancy Current Visit: Yes Status: Acute Assessment and plan: Oncology on board. IR performed a paracentesis with removal of 5500 and dark, purulent brown/red material. Repleted with albumin. Suspect possible primary ovarian primary with metastasis to several locations including possible lungs, liver, spine. (6) Metastatic disease Current Visit: Yes Status: Acute (7) Peritoneal carcinomatosis Current Visit: Yes Status: Acute (8) Anxiety Current Visit: Yes Status: Acute Assessment and plan: Patient was started on lorazepam however she became too drowsy with MS Contin. Lorazepam changed to as needed. She appears much more irritable today and at times is delirious. Thyroid is on board, low-dose Haldol as needed. (9) Counseling regarding advanced care planning and goals of care Current Visit: Yes Status: Acute Assessment and plan: Palliative care is on board. Patient is now DNR CC and the plan is tentatively for her to go home tomorrow with hospice with her daughter helping as there appears to be no other family members that are willing to help out. Patient is decompensating rather quickly, we will continue to treat symptomatically. - Subjective Interval history: Patient seen and examined. On examination, patient is sitting upright in her bed however she is intermittently falling asleep. She is unresponsive to my questions and the only thing she was able to monitor was "leave me alone." - Constitutional Vitals: Temp Pulse Resp BP Pulse Ox 98.6 F 102 16 127/71 94 L 09/04/16 14:40 09/04/16 14:40 09/04/16 14:40 09/04/16 14:40 09/04/16 14:40 General appearance: Present: cachectic, A&O X 0, disheveled, mild distress, loss of weight. Absent: answers questions appropriately - Head Head exam: Present: atraumatic, normocephalic - Eye Eye exam: Present: PERRL, conjuntiva pink, sclera anicteric Pupils: Present: PERRL - Neck Neck exam general surgery: Present: supple, trachea midline. Absent: lymphadenopathy - Respiratory Respiratory exam: Present: decreased breath sounds. Absent: accessory muscle use, rales, respiratory distress, rhonchi, wheezes - Cardiovascular Cardiovascular exam: Present: RRR, +S1, +S2. Absent: diastolic murmur, gallop, rubs, systolic murmur - GI/Abdominal GI/Abdominal exam: Present: distended, firm, hyperactive bowel sounds, soft, tenderness, no peritoneal signs - Extremities Exam Extremities exam: Present: warm, radial pulses palpable and symetrical. Absent : calf tenderness, cyanotic, pedal edema - Neurological Exam Neurological exam: Present: altered, no focal deficits. Absent: pronater drift , facial droop, speech deficit - Skin Skin exam: Present: dry, intact, pallor (An jaundiced), warm Internal Medicine: Result - Labs CBC & Chem 7: 09/04/16 03:33 09/04/16 03:33 Labs: Short CBC 09/04/16 Range/Units 03:33 WBC 12.5 H (4.3-11.1) K/mcL Hgb 10.1 L (11.5-15.4) g/dL Hct 29.5 L (35.3-44.9) % Plt Count 225 (140-400) K/mcL Neutrophils # 9.9 H (1.6-8.9) K/mcL BMP 09/04/16 03:33 Sodium 137 Potassium 4.5 Chloride 112 H Carbon Dioxide 19 BUN 23 H Creatinine 0.78 Glucose 91 Calcium 8.5 L - ABG Interpretation ABG results: PT/INR, D-dimer PT 16.0 Seconds (9.4-12.1) H 08/30/16 19:53 Consult Discharge Plan - Plan Referrals: NO,PCP [Primary Care Provider] - Prescriptions: OxyCODONE Immed Rel [Roxicodone 5 MG] 5 mg PO Q4HR PRN #20 tablet PRN Reason: Breakthrough Pain Prochlorperazine Maleate [Compazine] 10 mg PO Q6HR PRN #16 tablet PRN Reason: Nausea Morphine Sulfate SR (12 HR) [MS Contin] 15 mg PO Q12HR #8 tablet.er Haloperidol [Haldol] 1 mg PO QID PRN #16 tablet PRN Reason: Agitation LORazepam [Ativan] 1 mg PO TID PRN #12 tablet PRN Reason: Anxiety Lactulose 20 gm PO BID PRN 4 Days PRN Reason: Constipation/high ammonia leve Morphine Oral CONC [Roxanol] 5 - 10 mg PO Q1H PRN #15 oral.syg PRN Reason: Painif can't swallow pain pill Sennosides/Docusate Sodium [Senna-S Tablet] 1 each PO BID #8 tablet
[2016-09-04] MEDS: Lactulose Oral Soln 20 GM/30 ML UDC PO SCH (21:11)
[2016-09-05] MEDS: Haloperidol Lactate 5 MG/ML VIAL IV SCH ×3 (00:19→11:29)
[2016-09-05] MEDS: *HR* Morphine Sulfate SR (12 HR) 15 MG TABLET.ER PO SCH ×2 (00:57→08:55)
[2016-09-05] MEDS: *HR* Promethazine 25 MG/ML VIAL IVP PRN (00:59)
[2016-09-05] MEDS: 0.9 % Sodium Chloride 1,000 ML IVC SCH ×2 (01:07→11:28)
[2016-09-05] MEDS: *HR* LORazepam 0.5 MG TABLET PO PRN (01:07)
[2016-09-05] MEDS: Pantoprazole 40 MG VIAL IVP SCH (06:03)
[2016-09-05] MEDS: *HR* OxyCODONE Immed Rel 5 MG TABLET PO PRN ×2 (06:08→14:11)
[2016-09-05] MEDS: Lactulose Oral Soln 20 GM/30 ML UDC PO SCH (08:12)
[2016-09-05] MEDS: *HR* Enoxaparin 30 MG/0.3 ML SYRINGE SQ SCH (08:14)
[2016-09-05] MEDS: Sennosides/Docusate Sodium TABLET PO SCH (08:15)
--- NOTE | 2016-09-05 14:00 | Internal Med Progress Note ---
Date of Encounter: 09/05/16 Time of Encounter: 09:00 - Assessment and plan (1) Abdominal pain Current Visit: Yes Status: Acute Assessment and plan: Patient has really decompensated over the last several days. Abdominal pain is possibly due to peritoneal cancer metastasis. Will continue pain management and supportive treatment. Qualifiers: Abdominal location: generalized Qualified Code(s): R10.84 - Generalized abdominal pain (2) Agitation Current Visit: Yes Status: Acute Assessment and plan: Etiologies and determined. Patient has possible liver metastasis. Lactulose is given to prevent hepatic encephalopathy. (3) Anemia Current Visit: Yes Status: Acute Assessment and plan: Likely secondary to metastatic cancer. Oncology is on board, per their recommendations we will transfuse if her Hb drops below 7. Folate supplementation added. Hemoglobin 6.9 and the patient was transfused 2 units of packed red blood cells. She remains hemodynamically stable and hemoglobin is stable after transfusion. Qualifiers: Anemia type: folate deficiency Folate deficiency anemia type: dietary Qualified Code(s): D52.0 - Dietary folate deficiency anemia (4) Anxiety Current Visit: Yes Status: Acute Assessment and plan: Patient was started on lorazepam however she became too drowsy with MS Contin. Lorazepam changed to as needed. She appears much more irritable today and at times is delirious. Low-dose Haldol as needed. (5) Malignancy Current Visit: Yes Status: Acute Assessment and plan: Oncology on board. Suspect possible primary ovarian primary with metastasis to several locations including possible lungs, liver, spine. (6) DVT prophylaxis Current Visit: Yes Status: Acute Assessment and plan: [place] [facility] - Time Spent With Patient Greater than 35 minutes - Subjective Interval history: Patient is a 66 year old female admitted for weight loss and sick. She did not see a doctor for 10 years before admission, no past medical history recorded. In ER, abdominal and chest CAT scan highly suspect metastasis malignancy in long and liver. However, patient did paracentesis and the cytology results did not see malignant cells. Oncology is on board, clinically consider ovarian carcinoma with metastasis. Patient did decline quickly in hospital, palliative care is on case and the family agreed to pursue comfort care and hospice. I saw and examined patient today. She is a confused, sleepy, not answer my question. She had no fever, vital signs stable. Seems has abdominal pain when I palpate to the abdominal. We will continue hydrate patient, given supportive and symptomatic management. - Constitutional Vitals: Temp Pulse Resp BP Pulse Ox 98.2 F 110 18 98/42 95 09/05/16 06:42 09/05/16 06:42 09/05/16 06:42 09/05/16 06:42 09/05/16 10:55 General appearance: Present: cachectic, A&O X 0, disheveled, mild distress, loss of weight. Absent: answers questions appropriately - Head Head exam: Present: atraumatic, normocephalic - Eye Eye exam: Present: PERRL, conjuntiva pink, sclera anicteric Pupils: Present: PERRL - Neck Neck exam general surgery: Present: supple, trachea midline. Absent: lymphadenopathy - Respiratory Respiratory exam: Present: CTAB. Absent: accessory muscle use, rales, rhonchi, wheezes - Cardiovascular Cardiovascular exam: Present: RRR, +S1, +S2. Absent: diastolic murmur, gallop, rubs, systolic murmur - GI/Abdominal GI/Abdominal exam: Present: distended, normal bowel sounds, soft, tenderness ( Tenderness on upper abdomen, with guarding), no peritoneal signs - Extremities Exam Extremities exam: Present: warm, radial pulses palpable and symetrical. Absent : calf tenderness, cyanotic, pedal edema - Neurological Exam Neurological exam: Present: CN II-XII intact, oriented X3, no focal deficits. Absent: pronater drift, facial droop, speech deficit - Skin Skin exam: Present: dry, intact Internal Medicine: Result - Labs CBC & Chem 7: 09/04/16 03:33 09/04/16 03:33 - ABG Interpretation ABG results: PT/INR, D-dimer PT 16.0 Seconds (9.4-12.1) H 08/30/16 19:53 Consult Discharge Plan - Plan Referrals: NO,PCP [Primary Care Provider] - Prescriptions: OxyCODONE Immed Rel [Roxicodone 5 MG] 5 mg PO Q4HR PRN #20 tablet PRN Reason: Breakthrough Pain Prochlorperazine Maleate [Compazine] 10 mg PO Q6HR PRN #16 tablet PRN Reason: Nausea Morphine Sulfate SR (12 HR) [MS Contin] 15 mg PO Q12HR #8 tablet.er Haloperidol [Haldol] 1 mg PO QID PRN #16 tablet PRN Reason: Agitation LORazepam [Ativan] 1 mg PO TID PRN #12 tablet PRN Reason: Anxiety Lactulose 20 gm PO BID PRN 4 Days PRN Reason: Constipation/high ammonia leve Morphine Oral CONC [Roxanol] 5 - 10 mg PO Q1H PRN #15 oral.syg PRN Reason: Painif can't swallow pain pill Sennosides/Docusate Sodium [Senna-S Tablet] 1 each PO BID #8 tablet
--- NOTE | 2016-09-05 14:21 | Discharge Summary ---
Date of Encounter: 09/05/16 Time of Encounter: 10:00 - Discharge Diagnosis (1) Abdominal pain Priority: Primary Status: Acute Qualifiers: Abdominal location: generalized Qualified Code(s): R10.84 - Generalized abdominal pain (2) Agitation Priority: Secondary Status: Acute (3) Anemia Priority: Secondary Status: Acute Qualifiers: Anemia type: folate deficiency Folate deficiency anemia type: dietary Qualified Code(s): D52.0 - Dietary folate deficiency anemia (4) Anxiety Priority: Secondary Status: Acute (5) Malignancy Priority: Primary Status: Acute (6) DVT prophylaxis Priority: Secondary Status: Acute - Discharge Medications Prescriptions: OxyCODONE Immed Rel [Roxicodone 5 MG] 5 mg PO Q4HR PRN #20 tablet PRN Reason: Breakthrough Pain Prochlorperazine Maleate [Compazine] 10 mg PO Q6HR PRN #16 tablet PRN Reason: Nausea Morphine Sulfate SR (12 HR) [MS Contin] 15 mg PO Q12HR #8 tablet.er Haloperidol [Haldol] 1 mg PO QID PRN #16 tablet PRN Reason: Agitation LORazepam [Ativan] 1 mg PO TID PRN #12 tablet PRN Reason: Anxiety Lactulose 20 gm PO BID PRN 4 Days PRN Reason: Constipation/high ammonia leve Morphine Oral CONC [Roxanol] 5 - 10 mg PO Q1H PRN #15 oral.syg PRN Reason: Painif can't swallow pain pill Sennosides/Docusate Sodium [Senna-S Tablet] 1 each PO BID #8 tablet Home Medications: Haloperidol [Haldol] 1 mg PO QID PRN #16 tablet 09/04/16 [Rx] LORazepam [Ativan] 1 mg PO TID PRN #12 tablet 09/04/16 [Rx] Lactulose 20 gm PO BID PRN 4 Days 09/04/16 [Rx] Morphine Oral CONC [Roxanol] 5 - 10 mg PO Q1H PRN #15 oral.syg 09/04/16 [Rx] Morphine Sulfate SR (12 HR) [MS Contin] 15 mg PO Q12HR #8 tablet.er 09/04/16 [Rx ] OxyCODONE Immed Rel [Roxicodone 5 MG] 5 mg PO Q4HR PRN #20 tablet 09/04/16 [Rx] Prochlorperazine Maleate [Compazine] 10 mg PO Q6HR PRN #16 tablet 09/04/16 [Rx] Sennosides/Docusate Sodium [Senna-S Tablet] 1 each PO BID #8 tablet 09/04/16 [Rx ] Allergies/Adverse Reactions: Allergies No Known Allergies Allergy (Verified 08/31/16 14:16) Date of admission: 08/30/16 21:33 Primary care physician: PCP NO Consults: 08/30/16 21:44 Consult to [employer] [CONS] Routine Reason for SW Consult: DC planning. 08/31/16 07:49 Consult to Nutrition [CONS] Routine Comment: Consulting Provider: NUTRITION Reason for Dietary Consult: Supplemental Nutrition 09/01/16 07:43 Consult to Occupational Therapy [CONS] Routine Comment: Evaluate, develop and implement POC Consult to Physical Therapy [CONS] Routine Comment: Evaluate, develop and implement POC Discharging clinician: Stephanie Adorno Anticipated date of discharge: 09/05/16 - Patient Status Disposition: Hospice - Home Condition: Serious Functional capacity at discharge: bed bound - Discharge Instructions Follow Up With: NO,PCP [Primary Care Provider] - - Diet and Activity Activity: other (Comfort Care only) Diet: other (Mechanical soft) Interval History: Ms. Ashby is a 66 year old female presenting with abdominal pain. She is not ready to provide history, but she later reports that she thought her weight loss program was going well, "but now, they say I have cancer: "when do I get to my room" "why shoulder answer the same question i ANSWERED LESS THN 1 HOUR AGO". I have had to obtain some items on history from ED notes. She apparently told ED PERSONNEL SHE HAD ABDOMINAL PAIN, SWELLING and has not been feeling well for 1 month. She appears to agree to weight loss. She has not seen a provider in 10 years. She has not had colonoscopy, or completed other health maintenance steps. It appears she smokes cigarette, she mentioned to ED staff that she uses marijuana. She reports generalized pain and bilateral leg swelling , malaise and dyspnea on exertion. No hematemesis, melena, hematochezia or hematuria. No yellowing of elder. No diarrhea or constipation. No fever. No cough , no sorethroat. I am unable to confirm her code status, but will assume FULL CODE until goals or care discussion are completed. I am unable to confirm her NOK/POA, her daughter, Seble Ashby, is listed on her facesheet as her NOK ( [phone]). Hospital course: Ms. Ashby is a 66 year old female admitted for abdominal pain. She was found highly suspected metastatic malignancy in liver and lung. Oncology consult was called, clinically considering ovarian carcinoma with a remote metastasis. Patient did decline quickly in hospital. Family wanted to pursue hospice and comfort care. Patient will discharge home with home hospice. I saw and examined the patient today. She is a confused. Abdominal is distended and tender. Palliative care is on board and the family agrees to start hospice care. Will DC patient home with home hospice per family wish. - Time Spent with Patient Total time spent providing and/or coordinating discharge services: 40 minutes Greater than 30 minutes - Constitutional Vitals: Temp Pulse Resp BP Pulse Ox 98.2 F 110 18 98/42 95 09/05/16 06:42 09/05/16 06:42 09/05/16 06:42 09/05/16 06:42 09/05/16 10:55 General appearance: Present: cachectic, A&O X 0, disheveled, mild distress, loss of weight. Absent: answers questions appropriately - Head Head exam: Present: atraumatic, normocephalic - Eye Eye exam: Present: PERRL, conjuntiva pink, sclera anicteric Pupils: Present: PERRL - Neck Neck exam general surgery: Present: supple, trachea midline. Absent: lymphadenopathy - Respiratory Respiratory exam: Present: CTAB. Absent: accessory muscle use, rales, rhonchi, wheezes - Cardiovascular Cardiovascular exam: Present: RRR, +S1, +S2. Absent: diastolic murmur, gallop, rubs, systolic murmur - GI/Abdominal GI/Abdominal exam: Present: distended, normal bowel sounds, soft, tenderness, no peritoneal signs - Extremities Exam Extremities exam: Present: warm, radial pulses palpable and symetrical. Absent : calf tenderness, cyanotic, pedal edema - Neurological Exam Neurological exam: Present: CN II-XII intact, oriented X3, no focal deficits. Absent: pronater drift, facial droop, speech deficit - Skin Skin exam: Present: dry, intact
--- NOTE | 2016-09-05 14:24 | Physician Discharge Referral ---
Home Health/Hosp Referral Info Transfer to: Hospice Provider in Charge Post Discharge: [facility] - Diagnosis (1) Abdominal pain Status: Acute (2) Agitation Status: Acute (3) Anemia Status: Acute (4) Anxiety Status: Acute (5) Malignancy Priority: Primary Status: Acute (6) DVT prophylaxis Status: Acute - Respiratory Orders Oxygen / L per min (2) Smoking Cessation: Smoking cessation has been advised. For more information, call the [place] Tobacco Quit Line at 0-100-OMZC-NOW. - Diet/Nutrition Diet/Nutrition Orders: Mechanical Soft - Transfer Medications Prescriptions: OxyCODONE Immed Rel [Roxicodone 5 MG] 5 mg PO Q4HR PRN #20 tablet PRN Reason: Breakthrough Pain Prochlorperazine Maleate [Compazine] 10 mg PO Q6HR PRN #16 tablet PRN Reason: Nausea Morphine Sulfate SR (12 HR) [MS Contin] 15 mg PO Q12HR #8 tablet.er Haloperidol [Haldol] 1 mg PO QID PRN #16 tablet PRN Reason: Agitation LORazepam [Ativan] 1 mg PO TID PRN #12 tablet PRN Reason: Anxiety Lactulose 20 gm PO BID PRN 4 Days PRN Reason: Constipation/high ammonia leve Morphine Oral CONC [Roxanol] 5 - 10 mg PO Q1H PRN #15 oral.syg PRN Reason: Painif can't swallow pain pill Sennosides/Docusate Sodium [Senna-S Tablet] 1 each PO BID #8 tablet Home Medications: Haloperidol [Haldol] 1 mg PO QID PRN #16 tablet 09/04/16 [Rx] LORazepam [Ativan] 1 mg PO TID PRN #12 tablet 09/04/16 [Rx] Lactulose 20 gm PO BID PRN 4 Days 09/04/16 [Rx] Morphine Oral CONC [Roxanol] 5 - 10 mg PO Q1H PRN #15 oral.syg 09/04/16 [Rx] Morphine Sulfate SR (12 HR) [MS Contin] 15 mg PO Q12HR #8 tablet.er 09/04/16 [Rx ] OxyCODONE Immed Rel [Roxicodone 5 MG] 5 mg PO Q4HR PRN #20 tablet 09/04/16 [Rx] Prochlorperazine Maleate [Compazine] 10 mg PO Q6HR PRN #16 tablet 09/04/16 [Rx] Sennosides/Docusate Sodium [Senna-S Tablet] 1 each PO BID #8 tablet 09/04/16 [Rx ] Allergies/Adverse Reactions: Allergies No Known Allergies Allergy (Verified 08/31/16 14:16) Certification: Further, I certify that my clinical findings support that this patient is homebound (i.e. absences from home require considerable and taxing effort and are for medical reasons or mu-ism services or infrequently or short duration when for other reasons) because: Homebound Reason: Altered mental status requiring supervision when leaving home Attestation: My signature below is to certify that this patient is under my care and that I, or nurse practitioner, or a physician's stonecutter assistant working with me, has a face-to -face encounter with this patient.
--- NOTE | 2016-09-05 14:32 | Event Note ---
Date of Encounter: 09/05/16 Time of Encounter: 14:31 Ms. Ashby will be discharged home with hospice services. Hospice was able to meet with her and her family yesterday and DME was delivered. Rx for comfort medications were filled yesterday. Discussed case with hospitalist as well as admitting hospice nurse.
--- NOTE | 2016-09-08 15:16 | Event Note ---
Date of Encounter: 09/08/16 Time of Encounter: 15:14 Hospice medical safety director certification of terminal illness: Hospice benefit. Start: 09/05/2016 Hospice benefit. In: +90 days Palliative performance scale: The percent History: History of increasing abdominal pain as well as ascites. Patient was found to have peritoneal carcinomatosis that this was coming from her lung with metastases to the liver as well as the abdomen. Patient does not wish to have any further aggressive therapy and no further workup therefore I find These findings support a life expectancy of 6 months or less. I attest that I have compose the above narrative based on my review of the patient's medical records, and or on my examination of the patient. Jeffrey Altamirano M.D. Associate medical information specialist. [facility]
== END 2016-09-05 15:00 | disposition hospice, home (50) | DRG 229 ==
LOC: EMEROO 18:45 → 3ANU 18:45 → SUATTDRO 21:33 → 3ANU 22:29
PROVIDERS: ADMIT Internal Medicine; ATTEND Internal Medicine